=== PATIENT | male | born 1935 | race Caucasian/White ===

== ENCOUNTER 2020-09-18 00:06 | Emergency (ER) | payer MEDICARE, SELFPAY ==
[2020-09-18 00:49] VITALS: BP 138/57; PULSE 84; RESP 16; TEMP 37.6; O2SAT 98; BMI 26.6
--- NOTE | 2020-09-18 01:24 | ED_ITS ---
HPI - General Adult General Chief complaint: Fever Stated complaint: sepsis Time Seen by Provider: 09/18/20 00:29 Source: family and EMS Mode of arrival: EMS Limitations: language barrier (used interpreter for the deaf) History of Present Illness HPI narrative: Patient is an 84-year-old male a past medical history of diabetes, hypertension and high cholesterol who was brought in via EMS with a stated complaint of sepsis. However, upon patient's arrival his vital signs were stable, a rectal temp revealed 99.6F and patient had no complaints except for some gas. Edwardo, the nurse, called the patient's girlfriend at home, Vicki Perez, she states the patient has been sick for a few days, has not been eating, has had fevers, cough, fatigue and was tested 6 days ago for COVID that was negative. She states they had Thanksgiving with a group of people and 1 of those people tested positive the next day. She states both her and the patient have tested negative. She said the reason she called an ambulance is because the [facility] nurse came to the home, she was a very poor historian and the story is unclear. Related Data Allergies Allergy/AdvReac Type Severity Reaction Status Date / Time No Known Allergies Allergy Unverified 07/02/20 15:10 [No Known Allergies*] Review of Systems Review of Systems: see HPI REPLACED BY [facility] Past Medical History Medical History Diabetes High cholesterol Hypertension Social History Social History Advance Directives: No Advance Directives Information Provided: No Physical Exam Vital Signs: Vital Signs: Last Vital Signs Temp 99.6 F 09/18/20 00:49 Pulse 84 09/18/20 00:49 Resp 16 09/18/20 00:49 BP 138/57 L 09/18/20 00:49 Pulse Ox 98 09/18/20 00:49 Body Mass Index 26.6 Const: General: cooperative, healthy appearing, comfortable and no acute distress Nutritional Appearance: well nourished Orientation/consciousness: patient oriented x3 HENMT: Head: Yes normal to inspection and Yes normocephalic Eyes: General: appearance normal, both eyes and all related structures Pupils: Equal, round and reactive pupils present EOM: EOMs intact bilaterally Neck: Neck: Yes normal visual inspection, Yes full ROM, Yes no meningeal signs and Yes supple Chest: Chest palpation & inspection: normal inspection of the chest Resp: Effort & Inspection: normal respiratory effort and able to speak in complete sentences Auscultation: clear to auscultation bilaterally, no crackles, no rales, no rhonchi and no wheezes Cardio: Rate: regular rate Rhythm: regular rhythm Heart sounds: normal S1 and S2 GI: Inspection: Yes normal to inspection Palpation (GI): Soft to palpation, nontender, no guarding and not rigid Auscultation: normal bowel sounds Skin: General skin exam: no rashes or lesions noted Neuro: General: patient oriented x3 and no meningeal signs Cranial nerves: Yes Equal, round and reactive pupils present Extrem: General: Yes normal to inspection Course Course Course Narrative: Patient is an 84-year-old male with past medical history of diabetes hypertension and elevated cholesterol who was BIBA with unclear story. Upon exam with interpreter for the deaf present, patient's only complaint is some gas. His girlfriend complains of a possible COVID exposure 7 days ago but said they tested positive 5 days ago. Patient has no signs of COVID and his vital signs are stable. Will do basic labs, PO challenge and likely discharge. Will give simethicone. 09/19/2020 2am signed pt out to Dr Dupree
--- NOTE | 2020-09-18 01:30 | ECG_ITS ---
Test Reason : WEAKNESS Blood Pressure : / mmHG Vent. Rate : 078 BPM Atrial Rate : 078 BPM P-R Int : 148 ms QRS Dur : 078 ms QT Int : 374 ms P-R-T Axes : 042 -06 076 degrees QTc Int : 426 ms Sinus rhythm with Premature atrial complexes Nonspecific T wave abnormality Abnormal ECG When compared with ECG of 24-DEC-2017 03:02, Premature atrial complexes are now Present Referred By: Denise Burgos Electronically Signed By:LINDSEY JOHNSON MD
[2020-09-18 02:02] LABS: Basophils Percent Auto 0.2 % (0-2); Hematocrit 32.4 % (42-52); Hemoglobin 10.3 g/dl (14.0-18.0); Imm Gran Abs Auto 0.01 X10*3/uL (0.00-0.03); Imm Gran Pct Auto 0.2 % (0.0-0.4); Lymphocytes Absolute Auto 1.1 X10*3/uL (1.2-4.9); Lymphocytes Percent Auto 25.8 % (20-40); MANUAL DIFF FLAG NO; Mean Corpuscular HGB Conc 31.8 g/dl (31.0-36.0); Mean Corpuscular Hemoglobin 22.8 pg (27.0-33.0); Mean Corpuscular Volume 71.7 fL (80-98); Mean Platelet Volume 10.2 fL (9.4-12.4); Monocytes Absolute Auto 0.6 X10*3/uL (0.1-1.2); Neutrophils Absolute Auto 2.6 X10*3/uL (2.0-8.3); Neutrophils Percent Auto 60.8 % (45-73); Red Blood Count 4.52 X10*6/uL (4.60-5.80); White Blood Count 4.2 X10*3/uL (4.8-10.8)
[2020-09-18 02:08] LABS: INTERNATIONAL NORM RATIO 1.1 (0.9-1.1); Prothrombin Time 13.4 SEC (10.8-13.0)
[2020-09-18 02:10] LABS: Platelet Count 91 X10*3/uL (160-400)
[2020-09-18 02:11] VITALS: BP 148/70; PULSE 84; RESP 16; TEMP 37.5; O2SAT 98
[2020-09-18 02:11] LABS: Partial Thromboplastin Time 30.2 SEC (24.1-38.0)
[2020-09-18 02:29] LABS: Anion Gap 12 (12-20); Blood Urea Nitrogen 37 mg/dL (9-16); Calcium 7.3 mg/dL (8.4-10.2); Carbon Dioxide 21 mmol/L (22-29); Chloride 101 mmol/L (96-108); Creatinine Clr Calc Pharmacy 21.2; Estimated Glomerular Filt Rate 27; Glucose Random 209 mg/dL (60-115); Magnesium 1.9 mg/dL (1.6-2.6); Potassium 3.7 mmol/l (3.3-5.1); Sodium 130 mmol/L (135-145)
[2020-09-18] MEDS: Simethicone 80 MG TAB.CHEW 160 MG PO (03:05)
[2020-09-18 03:34] LABS: Glucose Urine UA >=1000 MG/DL (NEG); Leukocyte Esterase Urine TRACE (NEG); Nitrite Urine NEG (NEG); Urine Blood TRACE (NEG); Urine Ketones NEG (NEG); Urine Protein 1+ MG/DL (NEG-TRACE)
[2020-09-18 03:40] LABS: Appearance Urine CLEAR; Color Urine YELLOW
[2020-09-18 03:52] LABS: Squamous Epithelial Cell Urine TRACE /LPF
[2020-09-18 03:53] LABS: Amorphous Sediment Urine TRACE /LPF; Granular Casts Urine 0-2 /LPF; Hyaline Casts Urine 0-2 /LPF
[2020-09-18 04:00] VITALS: BP 142/57; PULSE 85; RESP 18; TEMP 37.4; O2SAT 97
[2020-09-18] MEDS: Amoxicillin/Potassium Clav 875 MG TABLET PO (04:44)
== END 2020-09-18 06:47 | disposition home or self-care (01) ==
PROVIDERS: Physician Assistant; Emergency Provider Student in an Organized Health Care Education/Training Program
DX: R50.9 Fever, unspecified (principal); E11.9 Type 2 diabetes mellitus without complications; I10 Essential (primary) hypertension; Z20.828 Contact with and (suspected) exposure to other viral communicable diseases; Z79.899 Other long term (current) drug therapy
CPT/HCPCS: 36415; 80048; 81001; 83735; 85025; 85610; 85730; 87086; 87147; 93005; 99283; 99284

== ENCOUNTER 2020-09-21 21:29 | Inpatient (IN) | payer MEDICARE, SELFPAY ==
[2020-09-21] VITALS (9 sets, daily range): BP systolic 135–163; BP diastolic 48–79; PULSE 99–175; RESP 18–28; TEMP 37.2; O2SAT 89–93; BMI 32.5
--- NOTE | 2020-09-21 | ECG_ITS ---
Test Reason : CHEST PAIN Blood Pressure : / mmHG Vent. Rate : 099 BPM Atrial Rate : 099 BPM P-R Int : 122 ms QRS Dur : 074 ms QT Int : 330 ms P-R-T Axes : -13 000 089 degrees QTc Int : 423 ms Sinus rhythm with Premature supraventricular complexes Nonspecific T wave abnormality Abnormal ECG When compared with ECG of 18-SEP-2020 01:43, No significant change was found Referred By: Mai Do Electronically Signed By:SWEETIE EL
--- NOTE | 2020-09-21 09:18 | ECG_ITS ---
Test Reason : TACHY Blood Pressure : / mmHG Vent. Rate : 104 BPM Atrial Rate : 144 BPM P-R Int : 000 ms QRS Dur : 072 ms QT Int : 340 ms P-R-T Axes : 000 001 081 degrees QTc Int : 447 ms Atrial fibrillation with rapid ventricular response Nonspecific ST and T wave abnormality Abnormal ECG When compared to the previous EKG of same day, no significant changes noted. Referred By: Mai Do Electronically Signed By:SWEETIE EL
--- NOTE | 2020-09-21 09:18 | ECG_ITS ---
Test Reason : TACHY Blood Pressure : / mmHG Vent. Rate : 162 BPM Atrial Rate : 174 BPM P-R Int : 000 ms QRS Dur : 074 ms QT Int : 262 ms P-R-T Axes : 000 000 178 degrees QTc Int : 430 ms Atrial fibrillation with rapid ventricular response Nonspecific ST and T wave abnormality Abnormal ECG When compared to the previous EKG of same day, [facility] Referred By: Mai Do Electronically Signed By:SWEETIE EL
--- NOTE | 2020-09-21 21:36 | XR_ITS ---
EXAMINATION: XR CHEST CLINICAL INFORMATION: Cough, cold exposure COMPARISON: 12/06/2017 TECHNIQUE: Frontal view of the chest was obtained. FINDINGS: The heart and pulmonary vessels appear normal. Patchy multifocal infiltrates are present in the lungs, left greater than right, worrisome for infection, possibly Covid. No definite pleural effusions are seen. The aorta is unfolded. XR/XR chest 1V IMPRESSION: Patchy infiltrates in the lungs worrisome for infection.
--- NOTE | 2020-09-21 21:37 | ED.GENADULT ---
HPI - General Adult General Chief complaint: Upper Respiratory Symptoms Stated complaint: FEVER (102.0), COVID + 3 DAYS AGO Time Seen by Provider: 09/21/20 21:34 Source: patient and EMS Mode of arrival: EMS Limitations: language barrier ( Kinyarwanda-speaking) History of Present Illness HPI narrative: patient is brought to the emergency room by EMS. According to the patient, he has been coughing for 1 week. Patient reports a fever of 102 at home. Patient is poor historian. Reports that his girls line and tested positive for COVID-19 a few days ago. Patient denies shortness of breath. According to EMS, they were called because of the cough and the fever of 102. patient was seen here 5 days ago, being treated for UTI, patient does not know which antibiotic he is taking MD complaint: fever, cough Related Data Previous Rx's Medication Instructions Recorded amoxicillin-pot clavulanate 1 tab PO Q12H 7 Days #14 tab 09/18/20 [Augmentin] Allergies Allergy/AdvReac Type Severity Reaction Status Date / Time No Known Allergies Allergy Verified 09/21/20 21:33 [No Known Allergies*] Review of Systems Review of Systems: Constitutional : No Weight loss, patient complaining of fever and chills, fatigue ENT/Mouth : No Hearing loss, No Ear Pain, No Nasal Congestion, No Sinus Pain, No Hoarseness, No sore throat, No Rhinorrhea, No Swallowing Difficulty Eyes: No Eye Pain, No Swelling, No Redness, No Foreign Body, No Discharge, No Vision Changes Cardiovascular : No Chest Pain, No SOB, No Dyspnea on Exertion, No Orthopnea, No Edema, No Palpitations Respiratory : patient complaining of Cough for 1 week, No Sputum, No Wheezing, No Smoke Exposure, No Dyspnea Gastrointestinal : No Nausea, No Vomiting, No Diarrhea, No Constipation, No abdominal Pain, No Hematochezia, No Melena Genitourinary : no irregular bleeding, No Dysuria, No Urinary Frequency, No Hematuria, No Urinary Incontinence, No Urgency, No Flank Pain, No Urinary Flow Changes, No Hesitancy Musculoskeletal : No joint pain, No Myalgias, No Joint Swelling Skin : No Skin Lesions, No rash Neuro : No Weakness, No Numbness, No Paresthesias, No Loss of Consciousness, No Dizziness, No Headache Psych : No Anxiety/Panic, No Depression, No SI/HI/AH/VH, No Social Issues, Heme/Lymph: No Bruising, No Bleeding,No Lymphadenopathy Endocrine : No Polyuria, No Polydipsia, No Temperature Intolerance PMF Past Medical History Medical History Diabetes High cholesterol Hypertension Social History Social History Advance Directives: No Physical Exam Vital Signs: Vital Signs: Last Vital Signs Temp 98.9 F 09/21/20 21:31 Pulse 133 H 09/21/20 23:15 Resp 26 H 09/21/20 23:15 BP 135/63 09/21/20 23:15 Pulse Ox 93 09/21/20 23:15 Body Mass Index 32.5 Appearance: Alert. Oriented X3. No acute distress. Eyes: Pupils equal, round and reactive to light. ENT: Pharynx normal. Neck: Normal inspection. Neck supple. No lymph nodes noted. No crepitus CVS: Normal heart rate and rhythm. Pulses normal. Normal S1 and S2 Respiratory: No respiratory distress. actively coughing. Breath sounds normal. No Wheezing. No rales Abdomen: Soft and nontender. No rigidity. No distention. good BS x4 Skin: Skin warm and dry. Normal skin color. Normal skin turgor. Extremities: No lower extremity edema. No lower extremity edema. No Lacerations. No Rash Neuro: Oriented X 3. No motor deficit. No sensory deficit. Moving all extermities. No slurred speech. Course Course Course Narrative: patient does not have history of atrial fibrillation. It was noted that patient was sitting down, then his heart rate ranged from 130-170, at this time, patient states that he was feeling short of breath and was complaining mainly of hiccups. Patient states he has been having the sensations on and off for about a week but he was not aware that his heart rate was beating fast, denied palpitations. Patient received 1 dose of IV Cardizem 20 mg, his heart rate dropped to 110 approximately, but keeps fluctuating between 110 and 140, then a 2nd dose of IV Cardizem was administered. Patient's blood pressure remains stable in the 140s, patient asymptomatic, heart rate now ranging between 90 and 115. Patient will be started on a Cardizem drip given patient's exposure to a COVID-19 patient, symptoms of the patient, chest x-ray, patient likely has COVID-19. COVID-19 test results pending I discussed the patient with our hospitalist, patient being admitted Medical Decision Making Lab Data Result diagrams: 09/21/20 21:49 09/21/20 21:49 Labs: Lab Results 09/21/20 09/21/20 09/21/20 Range/Units 21:49 21:49 21:49 WBC 4.4 L (4.8-10.8) X10*3/uL RBC 4.97 (4.60-5.80) X10*6/uL Hgb 11.4 L (14.0-18.0) g/dl Hct 35.1 L (42-52) % MCV 70.6 L (80-98) fL MCH 22.9 L (27.0-33.0) pg MCHC 32.5 (31.0-36.0) g/dl RDW 14.0 (11.0-16.0) % Plt Count 111 L (160-400) X10*3/uL MPV 11.8 (9.4-12.4) fL Immature Gran % (Auto) 0.5 H (0.0-0.4) % Neut % (Auto) 57.9 (45-73) % Lymph % (Auto) 27.4 (20-40) % [place] % (Auto) 13.8 H (2-11) % Eos % (Auto) 0.2 (0-4) % Baso % (Auto) 0.2 (0-2) % Lymph # (Auto) 1.2 (1.2-4.9) X10*3/uL [place] # (Auto) 0.6 (0.1-1.2) X10*3/uL Eos # (Auto) 0.0 (0.0-0.4) X10*3/uL Baso # (Auto) 0.0 (0.0-0.2) X10*3/uL Abs Immat Gran (auto) 0.02 (0.00-0.03) X10*3/uL Absolute Neuts (auto) 2.6 (2.0-8.3) X10*3/uL Absolute Nucleated RBC 0.000 (0.0-0.012) X10*3/uL Nucleated RBC % (auto) 0.0 (0.0-0.2) /100WBC Sodium 134 L (135-145) mmol/L Potassium 3.9 (3.3-5.1) mmol/l Chloride 101 (96-108) mmol/L Carbon Dioxide 22 (22-29) mmol/L Anion Gap 15 (12-20) BUN 36 H (9-16) mg/dL Creatinine 1.82 H (0.5-1.4) mg/dL Estim Creat Clear Calc 30.4 Estimated GFR 36 Random Glucose 82 D (60-115) mg/dL Lactic Acid 1.4 (0.5-2.0) mmol/L Calcium 7.9 L D (8.4-10.2) mg/dL ECG Data Attestation: I personally reviewed and interpreted this ECG as follows: ( sinus rhythm, heart rate 99, nonspecific T-wave abnormalities, QTC 423. EKG 2: fibrillation with RVR, heart rate 162. EKG 3: atrial fibrillation with RVR, heart rate 104) Critical Care Time Critical Care Time Critical Care Time: Yes Total Critical Care Time: 60 Attestation: AFib with RVR Discharge Plan Discharge Clinical Impression: Upper respiratory infection, Atrial fibrillation with RVR Patient Disposition: Admitted As Inpatient Prescriptions: No Action amoxicillin-pot clavulanate [Augmentin] 875-125 mg tablet 1 tab PO Q12H 7 Days Qty: 14 RF: 0
--- NOTE | 2020-09-21 21:57 | PC.NURSE ---
Pt spo2 92-93 on room air, placed on 2l nasal cannula, now 97-98
[2020-09-21 21:58] LABS: SCAN SMEAR FLAG 1
[2020-09-21 21:59] LABS: MANUAL DIFF FLAG NO
[2020-09-21 22:00] LABS: Basophils Percent Auto 0.2 % (0-2); Eosinophils Percent Auto 0.2 % (0-4); Hematocrit 35.1 % (42-52); Hemoglobin 11.4 g/dl (14.0-18.0); Imm Gran Abs Auto 0.02 X10*3/uL (0.00-0.03); Imm Gran Pct Auto 0.5 % (0.0-0.4); Lymphocytes Absolute Auto 1.2 X10*3/uL (1.2-4.9); Lymphocytes Percent Auto 27.4 % (20-40); Mean Corpuscular HGB Conc 32.5 g/dl (31.0-36.0); Mean Corpuscular Hemoglobin 22.9 pg (27.0-33.0); Mean Corpuscular Volume 70.6 fL (80-98); Mean Platelet Volume 11.8 fL (9.4-12.4); Monocytes Absolute Auto 0.6 X10*3/uL (0.1-1.2); Monocytes Percent Auto 13.8 % (2-11); Neutrophils Absolute Auto 2.6 X10*3/uL (2.0-8.3); Neutrophils Percent Auto 57.9 % (45-73); PLT ABN DIST 1; Platelet Count 111 X10*3/uL (160-400); Red Blood Count 4.97 X10*6/uL (4.60-5.80); White Blood Count 4.4 X10*3/uL (4.8-10.8)
[2020-09-21 22:29] LABS: Lactic Acid 1.4 mmol/L (0.5-2.0)
[2020-09-21] MEDS: 0.9 % Sodium Chloride 1,000 ML 999 ML IVCONT (22:40)
[2020-09-21] MEDS: dilTIAZem HCL 50 MG/10 ML VIAL 20 MG IVPUSH ×2 (22:41→23:14)
[2020-09-21 22:42] LABS: Anion Gap 15 (12-20); Blood Urea Nitrogen 36 mg/dL (9-16); Calcium 7.9 mg/dL (8.4-10.2); Carbon Dioxide 22 mmol/L (22-29); Chloride 101 mmol/L (96-108); Creatinine Clr Calc Pharmacy 30.4; Estimated Glomerular Filt Rate 36; Glucose Random 82 mg/dL (60-115); Potassium 3.9 mmol/l (3.3-5.1); Sodium 134 mmol/L (135-145)
--- NOTE | 2020-09-21 22:51 | PC.NURSE ---
Late etry. Aprox 2595 patient placed on air sampling and monitoring with tachy rythm in 170's. EKG showed irregular rythm. Cardizem administered and HR improved. Remains in a fib. Pt was alert, oriented, skin pwd. unlabored resp throughout. Reporting mild chestpain.
[2020-09-21] MEDS: dilTIAZem HCL 125 MG in 0.9 % Sodium Chloride 100 ML 10 MG IVCONT (23:45)
[2020-09-21 23:51] LABS: COVID-19 Test Positive (Negative)
[2020-09-22] VITALS (14 sets, daily range): BP systolic 119–164; BP diastolic 37–103; PULSE 75–123; RESP 16–30; TEMP 36.3–36.8; O2SAT 90–96; BMI 32.5
--- NOTE | 2020-09-22 | XR_ITS ---
EXAMINATION: XR ABDOMEN KUB CLINICAL INDICATION: Abdominal pain COMPARISON: None TECHNIQUE: AP view of the abdomen. FINDINGS: There is gaseous distention of the tortuous colon with gas seen distally to the rectum. Gas distended small bowel loops are present as well. No abnormal abdominal calcifications. Degenerative changes of the lumbar spine and hips. XR/XR KUB IMPRESSION: There is gaseous distention of the tortuous colon. There are gas distended small bowel loops as well. An ileus could give this appearance.
[2020-09-22] MEDS: Metoprolol Tartrate 5 MG/5 ML VIAL 2.5 MG IVPUSH (01:16)
--- NOTE | 2020-09-22 05:14 | PM.IMHP ---
History of Present Illness Date of Service: 09/22/20 Chief Complaint: cough this an 84-year-old male with past medical history diabetes who presents to the hospital with complaints of cough. patient is Botswanan-speaking only and history is obtained with the help of an motor vehicle parts interpreter. 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 He reports that he has been having cough for the past 1 week. According to the ED record patient presented to the hospital on stating that multiple members of his family had tested positive for COVID-19 after Thanksgiving. His family were concerned that he may also be suffering from that as he had cough and was not feeling generally well. He returns today stating that his cough has worsened, he has no shortness of breath, nonproductive cough. He has low appetite with very minimal oral intake. No diarrhea or constipation. No lower extremity edema. No orthopnea PND. No headache change in vision. On arrival to the ED patient found to have an O2 saturation of 89% on room air. He was also found to have a heart rate of 175, and in AFib. patient currently on 3 L of oxygen satting between 90-92%. Labs are significant for WBC count of 4.4, sodium of 134, BUN of 36, creatinine of 1.82 (baseline). COVID-19 positive. Chest x-ray showing bilateral infiltrate. Past medical history is difficult to obtain from patient Past medical history: Diabetes, hypertension, hyperlipidemia past surgical history: Denies family history: Denies social history: Comes from home, lives with his girlfriend, reports that he ambulates independently, denies any tobacco alcohol and illicit drugs Review of Systems Review of Systems: Yes all other systems are reviewed and are negative [facility] Medical History Diabetes High cholesterol Hypertension Social History Alcohol intake: never Smoking Status: Never smoker Use of substances other than those prescribed or required for medical reasons: No Advance Directives: No Meds Allergies Allergy/AdvReac Type Severity Reaction Status Date / Time No Known Allergies Allergy Verified 09/21/20 21:33 [No Known Allergies*] Home Medications Medication Instructions Recorded Confirmed Type amoxicillin-pot clavulanate See Protocol PO Q12H 09/21/20 History [Augmentin] aspirin 1 tab PO DAILY 09/21/20 09/21/20 History atorvastatin 1 tab PO DAILY 09/21/20 09/21/20 History docusate sodium [DOK] 1 cap PO DAILY 09/21/20 09/21/20 History insulin aspart (niacinamide) See Protocol SUBCUT DAILY 09/21/20 09/21/20 History [Fiasp FlexTouch U-100 Insulin] lancets [TRUEplus Lancets] 09/21/20 09/21/20 History metoclopramide HCl 10 mg PO DAILY 09/21/20 09/21/20 History pen needle, diabetic [Pentips] 09/21/20 09/21/20 History terazosin 1 cap PO DAILY 09/21/20 09/21/20 History Physical Exam Vital Signs and Narrative: Vital Signs: Last Vital Signs Temp 98.9 F 09/21/20 21:31 Pulse 91 09/22/20 03:50 Resp 18 09/22/20 03:50 BP 119/47 L 09/22/20 01:30 Pulse Ox 93 09/22/20 03:50 Body Mass Index 32.5 Const: Other: appears dehydrated General: cooperative and ill appearing Eyes: General: appearance normal, both eyes and all related structures Pupils: Equal, round and reactive pupils present Resp: Effort & Inspection: normal respiratory effort Cardio: Rate: regular rate Rhythm: regular rhythm GI: Palpation (GI): Soft to palpation Auscultation: normal bowel sounds Skin: General skin exam: no rashes or lesions noted Neuro: Cranial nerves: Yes Equal, round and reactive pupils present Cognition (Neuro): normal cognition Extrem: General: Yes normal to inspection and Yes no pedal edema Results Labs CBC and Chem 7: 09/21/20 21:49 09/21/20 21:49 Labs: Laboratory Results - last 24 hr 09/21/20 09/21/20 09/21/20 21:49 21:49 21:49 MCV 70.6 L MCH 22.9 L MCHC 32.5 RDW 14.0 Plt Count 111 L MPV 11.8 Immature Gran % (Auto) 0.5 H Neut % (Auto) 57.9 Lymph % (Auto) 27.4 [place] % (Auto) 13.8 H Eos % (Auto) 0.2 Baso % (Auto) 0.2 Lymph # (Auto) 1.2 [place] # (Auto) 0.6 Eos # (Auto) 0.0 Baso # (Auto) 0.0 Abs Immat Gran (auto) 0.02 Absolute Neuts (auto) 2.6 Absolute Nucleated RBC 0.000 Nucleated RBC % (auto) 0.0 Anion Gap 15 Estim Creat Clear Calc 30.4 Estimated GFR 36 Random Glucose 82 D Lactic Acid 1.4 Calcium 7.9 L D COVID-19 ([facility]) COVID-19 Clin Com 09/21/20 23:34 MCV MCH MCHC RDW Plt Count MPV Immature Gran % (Auto) Neut % (Auto) Lymph % (Auto) [place] % (Auto) Eos % (Auto) Baso % (Auto) Lymph # (Auto) [place] # (Auto) Eos # (Auto) Baso # (Auto) Abs Immat Gran (auto) Absolute Neuts (auto) Absolute Nucleated RBC Nucleated RBC % (auto) Anion Gap Estim Creat Clear Calc Estimated GFR Random Glucose Lactic Acid Calcium COVID-19 ([facility]) Positive A COVID-19 Clin Com See Note Imaging Radiologist's Impressions: Impressions Chest X-Ray 09/21/20 21:36 IMPRESSION: Patchy infiltrates in the lungs worrisome for infection. Assessment and Plan (1) Hypoxia: Status: Acute (2) Pneumonia due to COVID-19 virus: Status: Acute (3) Upper respiratory infection: Qualifiers: URI type: unspecified URI Qualified Code(s): J06.9 - Acute upper respiratory infection, unspecified Status: Acute (4) Atrial fibrillation with RVR: Status: Acute This is an 84-year-old male with past medical history as above who presents to the hospital with failure. Found to be in AFib with RVR # Sepsis - secondary to COVID-19 pneumonia - patient tachycardic, has leukopenia, as well as tachypneic - chest x-ray typical of COVID-19 presentation, COVID-19 positive Plan: - dexamethasone 4 mg daily - blood cultures collected in the ED will follow sensitivity and specificity - IV fluids # COVID-19 pneumonia - chest x-ray as above, COVID-19 results positive, hypoxic - monitor respiratory status, O2 as required, dexamethasone daily # acute hypoxic respiratory failure - secondary to COVID-19 pneumonia as above - O2 as required, monitor respiratory status # AFib with RVR - pulse of 175 on arrival, it appears to be new onset AFib as patient has no record or history of AFib - EKG shows AFib with RVR, no evidence of ACS Plan: - Will obtain a stat high sensitivity troponin, echocardiogram, consult Cardiology, will start patient on Lovenox for DVT prophylaxis at this time # diabetes - low-dose sliding scale insulin - diabetic diet # hyperlipidemia - continue statin
[2020-09-22] MEDS: 0.9 % Sodium Chloride Flush 3 ML SYRINGE IVFLUSH ×2 (08:54→16:33)
[2020-09-22] MEDS: ondansetron HCL 4 MG/2 ML VIAL IVPUSH ×2 (08:54→18:52)
[2020-09-22] MEDS: Enoxaparin Sodium 100 MG/ML SYRINGE 85 MG SUBCUT ×2 (08:54→20:28)
[2020-09-22] MEDS: dexAMETHasone sod phosphate 4 MG/ML VIAL IVPUSH (08:54)
[2020-09-22] MEDS: Docusate Sodium 100 MG CAPSULE PO (08:55)
[2020-09-22] MEDS: Acetaminophen 325 MG TABLET 650 MG PO (08:55)
[2020-09-22] MEDS: Aspirin Enteric Coated 81 MG TABLET.DR PO (08:55)
[2020-09-22] MEDS: Atorvastatin Calcium 20 MG TABLET PO (08:55)
[2020-09-22 09:09] LABS: Hematocrit 34.2 % (42-52); Hemoglobin 11.1 g/dl (14.0-18.0); Mean Corpuscular HGB Conc 32.5 g/dl (31.0-36.0); Mean Corpuscular Hemoglobin 22.7 pg (27.0-33.0); Mean Corpuscular Volume 70.1 fL (80-98); Platelet Count 112 X10*3/uL (160-400); Red Blood Count 4.88 X10*6/uL (4.60-5.80); White Blood Count 5.1 X10*3/uL (4.8-10.8)
[2020-09-22 09:11] LABS: PLT ABN DIST 1
[2020-09-22 09:14] LABS: Glucose, Whole Blood 227 mg/dL (60-115)
[2020-09-22 09:32] LABS: INTERNATIONAL NORM RATIO 1.1 (0.9-1.1); Prothrombin Time 13.6 SEC (10.8-13.0)
[2020-09-22 09:33] LABS: Troponin-I High Sensitivity 58.2 ng/L (<3.5-35.0)
[2020-09-22 09:35] LABS: Partial Thromboplastin Time 30.5 SEC (24.1-38.0)
[2020-09-22] MEDS: dilTIAZem HCL CD 180 MG CAP.ER.24H PO (11:41)
[2020-09-22 11:48] LABS: Glucose, Whole Blood 260 mg/dL (60-115)
[2020-09-22 11:59] LABS: Glucose Urine UA 500 MG/DL (NEG); Leukocyte Esterase Urine NEG (NEG); Nitrite Urine NEG (NEG); PH 5.5 (5.0-8.0); Specific Gravity - Urine >= 1.030 (1.005-1.025); Urine Blood 2+ (NEG); Urine Ketones 5 MG/DL (NEG); Urine Protein 2+ MG/DL (NEG-TRACE)
[2020-09-22 12:04] LABS: Appearance Urine HAZY; Color Urine YELLOW
[2020-09-22 12:16] LABS: Squamous Epithelial Cell Urine 2+ /LPF
[2020-09-22] MEDS: Insulin Lispro 100 UNIT/ML 3 ML VIAL SUBCUT ×2 (12:31→16:33)
[2020-09-22] MEDS: dexAMETHasone 2 MG TABLET PO (14:08)
[2020-09-22 16:37] LABS: Glucose, Whole Blood 311 mg/dL (60-115)
--- NOTE | 2020-09-22 18:11 | PC.NURSE ---
Addendum entered by Liliya Flanagan RN 09/22/20 21:20: Around 1800 pt started to complain of his increased abd pain and decreased appetite. Gave pt PRN zofran believing it could help, pt said was not effective. Pt abd does look distented at this time, soft, but tender to touch as well. Pt is belching and passing gas at this time. Pt is poor historian so doesnt know time of last BM (did have a colace this am) . Notified Md - one time 2mg morphine and miralax ordered. KUB ordered. Will monitor for effectiveness and KUB results. Original Note: Pt to [facility] this afternoon. Uz[place] speaking only Pt alert to self only - unsure about time/situation and sometimes says hes in the hospital but unsure of which one/where. Pt sleeping most of afternoon. SR/SA w/PACs on tele at this time. Lungs dim. Was on 5l o2 when up from ICU- was able to titrate to 3l sat mid 90s on nasal cannula. Telesitter and high fall risk measures remain in place - pt doesnt rememeber to use call rush but RN and aide will continue to encourage use. No other significant events at this time.
[2020-09-22] MEDS: Morphine Sulfate 2 MG/ML CARTRIDGE IVPUSH (20:27)
[2020-09-22] MEDS: polyethylene glycoL 3350 17 GM POWD.PACK PO (20:28)
[2020-09-22 21:31] LABS: Glucose, Whole Blood 268 mg/dL (60-115)
[2020-09-23] VITALS (8 sets, daily range): BP systolic 140–182; BP diastolic 61–78; PULSE 69–106; RESP 18–25; TEMP 36.4–37.2; O2SAT 90–94; BMI 29.5
--- NOTE | 2020-09-23 | XR_ITS ---
EXAMINATION: XR CHEST CLINICAL INFORMATION: Nasogastric tube placement COMPARISON: Previous chest x-ray 09/21/2020 TECHNIQUE: Frontal view of the chest was obtained. FINDINGS: There is a nasogastric tube that projects over the visualized head and neck. The tip is not seen. The cardiac and mediastinal contours are stable. There is a left-sided airspace disease suggestive of pneumonia. There may be a small infiltrate at the right lung base as well. This does not appear appreciably changed from previous exam. There is no pleural effusion or pneumothorax. There are degenerative changes of the spine. XR/XR chest 1V IMPRESSION: Nasogastric tube projects over the head and neck. The tip is not seen. No change in bilateral airspace disease, left greater than right, probably representing pneumonia. Findings will be communicated by the [place] work flow health science writer Anna Garza.
[2020-09-23] MEDS: 0.9 % Sodium Chloride Flush 3 ML SYRINGE IVFLUSH ×4 (00:24→21:42)
[2020-09-23] MEDS: Acetaminophen 325 MG TABLET 650 MG PO (02:19)
[2020-09-23] MEDS: Morphine Sulfate 2 MG/ML CARTRIDGE IVPUSH ×2 (04:44→12:48)
--- NOTE | 2020-09-23 06:00 | PC.NURSE ---
Addendum entered by Lanie Hendricks RN 09/23/20 07:43: Patient pulled out NG tube at 0630. Dr. Steven notified, this RN attempted to get another NG tube in without success. Day RN is aware and will make an attempt at placing NG tube. Original Note: Patient c/o generalized abd pain during the night. Pt abdomen is distended, positive bowel sounds - faint in bilateral bases. Pt received miralax last evening and moved bowels. However, pt continued to c/o of 7/10 abd pain and abdomen more firm than before. Dr. Steven notifed and ordered pt to be NPO, NG tube to be placed and surgery consult. This RN placed NG tube in right nare with 14F, pt tolerated well.
[2020-09-23 07:27] LABS: INTERNATIONAL NORM RATIO 1.2 (0.9-1.1); Prothrombin Time 14.1 SEC (10.8-13.0)
[2020-09-23 07:28] LABS: MANUAL DIFF FLAG SCAN; Mean Corpuscular HGB Conc 32.5 g/dl (31.0-36.0); SCAN SMEAR FLAG 1
[2020-09-23 07:30] LABS: Hematocrit 33.8 % (42-52); Imm Gran Abs Auto 0.05 X10*3/uL (0.00-0.03); Imm Gran Pct Auto 0.5 % (0.0-0.4); Lymphocytes Absolute Auto 0.6 X10*3/uL (1.2-4.9); Lymphocytes Percent Auto 6.4 % (20-40); Mean Corpuscular Hemoglobin 22.9 pg (27.0-33.0); Mean Corpuscular Volume 70.3 fL (80-98); Monocytes Absolute Auto 0.6 X10*3/uL (0.1-1.2); Monocytes Percent Auto 6.2 % (2-11); Neutrophils Absolute Auto 8.3 X10*3/uL (2.0-8.3); Neutrophils Percent Auto 86.9 % (45-73); Platelet Count 147 X10*3/uL (160-400); Red Blood Count 4.81 X10*6/uL (4.60-5.80); Red Cell Distribution Width 14.1 % (11.0-16.0); White Blood Count 9.5 X10*3/uL (4.8-10.8)
[2020-09-23 08:04] LABS: PLT ABN DIST 1
[2020-09-23 08:08] LABS: Anion Gap 18 (12-20); Blood Urea Nitrogen 43 mg/dL (9-16); Calcium 7.4 mg/dL (8.4-10.2); Carbon Dioxide 17 mmol/L (22-29); Chloride 101 mmol/L (96-108); Estimated Glomerular Filt Rate 34; Glucose Fasting 330 mg/dL (60-99); Potassium 4.3 mmol/l (3.3-5.1); Sodium 132 mmol/L (135-145)
[2020-09-23 08:40] LABS: Glucose, Whole Blood 353 mg/dL (60-115)
[2020-09-23 08:43] LABS: SLIDE REVIEW VERIFIED
--- NOTE | 2020-09-23 08:44 | MHC.CM.PN ---
pt lives c his s.o. in their apt. he reports that he is independent in his care. free of AD c ambulation and no svcs at home. his s.o. or other family can help him c his needs at dc , this will include a ride home at dc. dc plan at this time is home no svcs , however it is early in pt's hospitalization and depending on the course and condition of patient at dc this may change. cm to cont. to follow.
[2020-09-23] MEDS: Atorvastatin Calcium 20 MG TABLET PO (10:50)
[2020-09-23] MEDS: Aspirin Enteric Coated 81 MG TABLET.DR PO (10:50)
[2020-09-23] MEDS: dexAMETHasone sod phosphate 4 MG/ML VIAL 6 MG IVPUSH (10:53)
[2020-09-23] MEDS: Enoxaparin Sodium 100 MG/ML SYRINGE 85 MG SUBCUT ×2 (10:54→21:31)
[2020-09-23] MEDS: dilTIAZem HCL CD 180 MG CAP.ER.24H PO (10:56)
[2020-09-23] MEDS: polyethylene glycoL 3350 17 GM POWD.PACK PO (10:57)
[2020-09-23 11:35] LABS: Glucose, Whole Blood 369 mg/dL (60-115)
--- NOTE | 2020-09-23 12:01 | P.PNIM_ITS ---
Subjective Subjective Date of Service: 09/23/20 Interval History: mild abd pain Cardiovascular Cardiovascular: Reports no additional cardiovascular complaints Musculoskeletal Musculoskeletal: Reports no additional musculoskeletal complaints Physical Exam Vital Signs: Vital Signs: Last Vital Signs Temp 98.9 F 09/23/20 08:00 Pulse 99 09/23/20 10:56 Resp 20 09/23/20 03:16 BP 182/78 H 09/23/20 10:56 Pulse Ox 91 L 09/23/20 08:00 Body Mass Index 29.5 General: AO X 3, no acute distress Resp: CTA bilateral CVS: S1,S2,RRR GI: soft, some distension Neuro: motor grossly intact Psych: appropriate affect Objective Data Current Medications Generic Name Dose Route Start Last Admin Trade Name Freq PRN Reason Stop Dose Admin Acetaminophen 650 mg 09/22/20 08:25 09/23/20 02:19 Acetaminophen 325 Mg Tablet PO 650 mg Q6H PRN Administration Pain, Mild (Pain Scale 1-3) Aspirin 81 mg 09/22/20 09:00 09/23/20 10:50 Aspirin Enteric Coated 81 Mg Tablet.Dr PO 81 mg DAILY [facility] Administration Atorvastatin Calcium 20 mg 09/22/20 09:00 09/23/20 10:50 Atorvastatin Calcium 20 Mg Tablet PO 20 mg DAILY [facility] Administration Dexamethasone Sodium Phosphate 6 mg 09/22/20 09:00 09/23/20 10:53 Dexamethasone Sod Phosphate 4 Mg/Ml Vial IVPUSH 6 mg DAILY [facility] Administration Diltiazem HCl 180 mg 09/23/20 09:00 09/23/20 10:56 Diltiazem Hcl Cd 180 Mg Cap.Er.24h PO 180 mg DAILY [facility] Administration Protocol Docusate Sodium 100 mg 09/22/20 08:25 09/22/20 08:55 Docusate Sodium 100 Mg Capsule PO 100 mg DAILY PRN Administration Constipation Enoxaparin Sodium 85 mg 09/22/20 08:25 09/23/20 10:54 Enoxaparin Sodium 100 Mg/Ml Syringe 1 mg/kg (85 mg) 85 mg SUBCUT Administration Q12H [facility] Insulin Human Lispro 0 unit 09/22/20 08:25 09/23/20 10:49 Insulin Lispro 100 Unit/Ml 3 Ml Vial SUBCUT Not Given QIDACHS [facility] Protocol Morphine Sulfate 2 mg 09/23/20 04:08 09/23/20 04:44 Morphine Sulfate 2 Mg/Ml Cartridge IVPUSH 2 mg Q4H PRN Administration Pain, Severe (Pain Scale 7-10) Ondansetron HCl 4 mg 09/22/20 08:25 09/22/20 18:52 Ondansetron Hcl 4 Mg/2 Ml Vial IVPUSH 4 mg Q8H PRN Administration Nausea and Vomiting Pharmacy Consult 1 each 09/21/20 23:24 Consult Rx Perform Med Rec MISCELLANE ONCE PRN Consult order Polyethylene Glycol 17 gm 09/22/20 20:10 09/23/20 10:57 Polyethylene Glycol 3350 17 Gm Powd.Pack PO 17 gm DAILY [facility] Administration Sodium Chloride 3 ml 09/22/20 08:25 09/23/20 10:55 0.9 % Sodium Chloride Flush 3 Ml Syringe IVFLUSH 3 ml QSHIFT [facility] Administration Labs CBC & Chem 7: 09/23/20 06:06 09/23/20 06:06 Microbiology Microbiology Results: Microbiology 09/21/20 22:00 Blood - Venous Blood Culture - Preliminary No growth after 24 hours. 09/21/20 21:49 Blood - Venous Blood Culture - Preliminary No growth after 24 hours. Assessment and Plan (1) Hypoxia: Status: Deleted (2) Pneumonia due to COVID-19 virus: Status: Acute (3) Upper respiratory infection: Status: Deleted (4) Atrial fibrillation with RVR: Status: Acute (5) Acute respiratory failure with hypoxia: Status: Acute (6) CKD (chronic kidney disease), stage III: Status: Acute (7) Diabetes: Status: Acute (8) Hypertension: Status: Acute Assessment and Plan: 84-year-old male presented to the hospital with sob, afib rvr, abd distension sepsis poa due to viral sepsis from covid pneumonia complicated by acute hypoxic respiratory failure and afib with rvr continue decadron wean o2 as tolerated converted to sinus, continue therapeutic lovenox and cardizem ileus s/p NGT, minimal symptoms, follow up surgery diabetes insulin CKD III stable hyperlipidemia statin
[2020-09-23] MEDS: Insulin Lispro 100 UNIT/ML 3 ML VIAL SUBCUT ×3 (12:45→21:31)
[2020-09-23 16:21] LABS: Glucose, Whole Blood 378 mg/dL (60-115)
[2020-09-23] MEDS: ondansetron HCL 4 MG/2 ML VIAL IVPUSH (18:35)
[2020-09-23 20:15] LABS: Glucose, Whole Blood 391 mg/dL (60-115)
[2020-09-24] VITALS (8 sets, daily range): BP systolic 142–168; BP diastolic 55–74; PULSE 80–95; RESP 18–85; TEMP 36–36.8; O2SAT 89–92; BMI 29.5
[2020-09-24 06:42] LABS: Basophils Percent Auto 0.1 % (0-2); Hematocrit 31.2 % (42-52); Hemoglobin 10.4 g/dl (14.0-18.0); Imm Gran Abs Auto 0.15 X10*3/uL (0.00-0.03); Imm Gran Pct Auto 1.2 % (0.0-0.4); Lymphocytes Absolute Auto 0.6 X10*3/uL (1.2-4.9); Lymphocytes Percent Auto 5.1 % (20-40); MANUAL DIFF FLAG SCAN; Mean Corpuscular HGB Conc 33.3 g/dl (31.0-36.0); Mean Corpuscular Hemoglobin 23.1 pg (27.0-33.0); Mean Corpuscular Volume 69.3 fL (80-98); Monocytes Absolute Auto 0.6 X10*3/uL (0.1-1.2); Monocytes Percent Auto 5.2 % (2-11); Neutrophils Absolute Auto 10.7 X10*3/uL (2.0-8.3); Neutrophils Percent Auto 88.4 % (45-73); Platelet Count 200 X10*3/uL (160-400); Red Cell Distribution Width 14.2 % (11.0-16.0); SCAN SMEAR FLAG 1; White Blood Count 12.1 X10*3/uL (4.8-10.8)
[2020-09-24 07:24] LABS: Glucose, Whole Blood 305 mg/dL (60-115)
[2020-09-24 07:26] LABS: Anion Gap 18 (12-20); Blood Urea Nitrogen 59 mg/dL (9-16); Calcium 7.8 mg/dL (8.4-10.2); Carbon Dioxide 18 mmol/L (22-29); Chloride 102 mmol/L (96-108); Estimated Glomerular Filt Rate 30; Glucose Fasting 307 mg/dL (60-99); Potassium 4.1 mmol/l (3.3-5.1); Sodium 134 mmol/L (135-145)
--- NOTE | 2020-09-24 07:34 | P.CONGS_ITS ---
History of Present Illness Consult details Consult date: 09/24/20 Reason for consult: abdominal pain Narrative: 84 year old Macedonian speaking male with dementia, presenting with history of COVID-19 exposure over , developing respiratory symptoms and admitted to the [facility] with precautions for a positive COVID. Patient found to have increased shortness of breath and decreased O2 sats in the ED. Abdominal xray revealed dilated loops of bowel and dilated colon, possibly due to ileus. Since his admission, he has passed stool. He is currently on a clear liquid diet. Review of Systems Review of Systems: Yes Unobtainable due to mental condition [facility] Past Medical History Medical History (Updated 09/24/20 @ 07:44 by Porfirio Johnson MD) Diabetes High cholesterol Hypertension Social History Social History Household Members: Spouse Housing: House Do you presently have visiting nurse or other home services: No Alcohol intake: never Smoking Status: Never smoker Use of substances other than those prescribed or required for medical reasons: No Currently Displaying Signs/Symptoms of Drug Intoxication Withdrawal: No Have you been hit, kicked, punched, or otherwise hurt by someone within the past year? If so, by whom?: No Do you feel safe in your current relationship?: No Is there a partner from a previous relationship who is making you feel unsafe now?: No Are you made to feel afraid or neglected: No Advance Directives: No Do you have thoughts of harming others: None Do you have a plan to hurt others: No Plan Recently lost weight without trying: Unsure service: No Current occupational status: retired [employer] Allergies Allergy/AdvReac Type Severity Reaction Status Date / Time No Known Allergies Allergy Verified 09/21/20 21:33 [No Known Allergies*] Home Medications Medication Instructions Recorded Confirmed Type amoxicillin-pot clavulanate 1 tab PO Q12H 09/21/20 09/22/20 History [Augmentin] aspirin 1 tab PO DAILY 09/21/20 09/21/20 History atorvastatin 1 tab PO DAILY 09/21/20 09/21/20 History docusate sodium [DOK] 1 cap PO DAILY 09/21/20 09/21/20 History insulin aspart (niacinamide) See Protocol SUBCUT DAILY 09/21/20 09/21/20 History [Fiasp FlexTouch U-100 Insulin] lancets [TRUEplus Lancets] 09/21/20 09/21/20 History metoclopramide HCl 10 mg PO DAILY 09/21/20 09/21/20 History pen needle, diabetic [Pentips] 09/21/20 09/21/20 History terazosin 1 cap PO DAILY 09/21/20 09/21/20 History Physical Exam Vital Signs: Vital Signs: Last Vital Signs Temp 98 F 09/24/20 06:54 Pulse 92 09/24/20 06:54 Resp 20 09/24/20 06:54 BP 149/74 H 09/24/20 06:54 Pulse Ox 89 L 09/24/20 06:54 Body Mass Index 29.5 Const: Other: Awake, in no acute distress, breathing comfortably. Eyes: Other: EOMI, normal sclera Resp: Other: Breathing comfortably, no respiratory distress, no cough GI: Other: Softly distended, non tympanitic, nontender to palpation, no rebound, no rigidity, no palpable mass Skin: Other: Warm and dry, no rash Extrem: Other: No peripheral edema Results Labs Result diagrams: 09/23/20 06:06 09/24/20 05:52 Labs: Abnormal lab results 09/23/20 09/23/20 09/23/20 Range/Units 06:06 06:06 08:34 Hgb 11.0 L (14.0-18.0) g/dl Hct 33.8 L (42-52) % MCV 70.3 L (80-98) fL MCH 22.9 L (27.0-33.0) pg Plt Count 147 L D (160-400) X10*3/uL Immature Gran % (Auto) 0.5 H (0.0-0.4) % Neut % (Auto) 86.9 H (45-73) % Lymph % (Auto) 6.4 L (20-40) % Lymph # (Auto) 0.6 L (1.2-4.9) X10*3/uL Abs Immat Gran (auto) 0.05 H (0.00-0.03) X10*3/uL Sodium 132 L (135-145) mmol/L Carbon Dioxide 17 L (22-29) mmol/L BUN 43 H (9-16) mg/dL Creatinine 1.88 H (0.5-1.4) mg/dL POC Glucose 353 H* (60-115) mg/dL Fasting Glucose 330 H (60-99) mg/dL Calcium 7.4 L D (8.4-10.2) mg/dL 09/23/20 09/23/20 09/23/20 Range/Units 11:30 16:16 20:10 Hgb (14.0-18.0) g/dl Hct (42-52) % MCV (80-98) fL MCH (27.0-33.0) pg Plt Count (160-400) X10*3/uL Immature Gran % (Auto) (0.0-0.4) % Neut % (Auto) (45-73) % Lymph % (Auto) (20-40) % Lymph # (Auto) (1.2-4.9) X10*3/uL Abs Immat Gran (auto) (0.00-0.03) X10*3/uL Sodium (135-145) mmol/L Carbon Dioxide (22-29) mmol/L BUN (9-16) mg/dL Creatinine (0.5-1.4) mg/dL POC Glucose 369 H* 378 H* 391 H* (60-115) mg/dL Fasting Glucose (60-99) mg/dL Calcium (8.4-10.2) mg/dL 09/24/20 09/24/20 Range/Units 05:52 07:19 Hgb (14.0-18.0) g/dl Hct (42-52) % MCV (80-98) fL MCH (27.0-33.0) pg Plt Count (160-400) X10*3/uL Immature Gran % (Auto) (0.0-0.4) % Neut % (Auto) (45-73) % Lymph % (Auto) (20-40) % Lymph # (Auto) (1.2-4.9) X10*3/uL Abs Immat Gran (auto) (0.00-0.03) X10*3/uL Sodium 134 L (135-145) mmol/L Carbon Dioxide 18 L (22-29) mmol/L BUN 59 H (9-16) mg/dL Creatinine 2.11 H (0.5-1.4) mg/dL POC Glucose 305 H (60-115) mg/dL Fasting Glucose 307 H (60-99) mg/dL Calcium 7.8 L (8.4-10.2) mg/dL Short CBC 09/23/20 Range/Units 06:06 WBC 9.5 (4.8-10.8) X10*3/uL Hgb 11.0 L (14.0-18.0) g/dl Hct 33.8 L (42-52) % Plt Count 147 L D (160-400) X10*3/uL BMP 09/23/20 09/24/20 06:06 05:52 Sodium 132 L 134 L Potassium 4.3 4.1 Chloride 101 102 Carbon Dioxide 17 L 18 L BUN 43 H 59 H Creatinine 1.88 H 2.11 H Calcium 7.4 L D 7.8 L Urine 09/22/20 Range/Units 10:25 Urine Color YELLOW Urine Appearance HAZY Urine pH 5.5 (5.0-8.0) Ur Specific [place] >= 1.030 H (1.005-1.025) Urine Protein 2+ H (NEG-TRACE) MG/DL Urine Glucose (UA) 500 H (NEG) MG/DL All other labs normal. Assessment and Plan (1) Abdominal distension (gaseous): Status: Acute Patient presents for treatment of respiratory distress due to COVID-19. He was noted to have abdominal distension and abdominal x-ray revealed some dilated loops of bowel throughout the large and small bowel. Currently his abdomen is soft but slightly distended without tympany. He is tolerating a clear liquid diet and moving his bowels. Reviewed the abdominal x-ray revealed minimal dilatation of the small bowel with no evidence of obstruction. Patient probably could have his diet advanced as tolerated. No surgical intervention recommended.
[2020-09-24] MEDS: dexAMETHasone sod phosphate 4 MG/ML VIAL 6 MG IVPUSH (08:05)
[2020-09-24] MEDS: Insulin Lispro 100 UNIT/ML 3 ML VIAL SUBCUT ×4 (08:05→21:16)
[2020-09-24] MEDS: Enoxaparin Sodium 100 MG/ML SYRINGE 85 MG SUBCUT ×2 (08:06→21:16)
[2020-09-24] MEDS: polyethylene glycoL 3350 17 GM POWD.PACK PO (08:06)
[2020-09-24] MEDS: dilTIAZem HCL CD 180 MG CAP.ER.24H PO (08:07)
[2020-09-24] MEDS: Atorvastatin Calcium 20 MG TABLET PO (08:07)
[2020-09-24] MEDS: 0.9 % Sodium Chloride Flush 3 ML SYRINGE IVFLUSH ×3 (08:07→21:17)
[2020-09-24] MEDS: Aspirin Enteric Coated 81 MG TABLET.DR PO (08:07)
[2020-09-24 08:17] LABS: SLIDE REVIEW VERIFIED
--- NOTE | 2020-09-24 10:40 | P.PNIM_ITS ---
Subjective Subjective Date of Service: 09/24/20 Interval History: no abd pain, a but nauseous, loose stools, no sob Cardiovascular Cardiovascular: Reports no additional cardiovascular complaints Respiratory Respiratory: Reports no additional respiratory complaints Physical Exam Vital Signs: Vital Signs: Last Vital Signs Temp 98 F 09/24/20 06:54 Pulse 92 09/24/20 08:07 Resp 20 09/24/20 06:54 BP 149/74 H 09/24/20 08:07 Pulse Ox 89 L 09/24/20 06:54 Body Mass Index 29.5 General: AO X 3, no acute distress Resp: CTA bilateral CVS: S1,S2,RRR GI: distended but not tense or tender Neuro: motor grossly intact Psych: appropriate affect Objective Data Current Medications Generic Name Dose Route Start Last Admin Trade Name Freq PRN Reason Stop Dose Admin Acetaminophen 650 mg 09/22/20 08:25 09/23/20 02:19 Acetaminophen 325 Mg Tablet PO 650 mg Q6H PRN Administration Pain, Mild (Pain Scale 1-3) Aspirin 81 mg 09/22/20 09:00 09/24/20 08:07 Aspirin Enteric Coated 81 Mg Tablet.Dr PO 81 mg DAILY [facility] Administration Atorvastatin Calcium 20 mg 09/22/20 09:00 09/24/20 08:07 Atorvastatin Calcium 20 Mg Tablet PO 20 mg DAILY [facility] Administration Dexamethasone Sodium Phosphate 6 mg 09/22/20 09:00 09/24/20 08:05 Dexamethasone Sod Phosphate 4 Mg/Ml Vial IVPUSH 6 mg DAILY [facility] Administration Diltiazem HCl 180 mg 09/23/20 09:00 09/24/20 08:07 Diltiazem Hcl Cd 180 Mg Cap.Er.24h PO 180 mg DAILY [facility] Administration Protocol Docusate Sodium 100 mg 09/22/20 08:25 09/22/20 08:55 Docusate Sodium 100 Mg Capsule PO 100 mg DAILY PRN Administration Constipation Enoxaparin Sodium 85 mg 09/22/20 08:25 09/24/20 08:06 Enoxaparin Sodium 100 Mg/Ml Syringe 1 mg/kg (85 mg) 85 mg SUBCUT Administration Q12H [facility] Insulin Human Lispro 0 unit 09/22/20 08:25 09/24/20 08:05 Insulin Lispro 100 Unit/Ml 3 Ml Vial SUBCUT 8 unit QIDACHS [facility] Administration Protocol Morphine Sulfate 2 mg 09/23/20 04:08 09/23/20 12:48 Morphine Sulfate 2 Mg/Ml Cartridge IVPUSH 2 mg Q4H PRN Administration Pain, Severe (Pain Scale 7-10) Ondansetron HCl 4 mg 09/22/20 08:25 09/23/20 18:35 Ondansetron Hcl 4 Mg/2 Ml Vial IVPUSH 4 mg Q8H PRN Administration Nausea and Vomiting Pharmacy Consult 1 each 09/21/20 23:24 Consult Rx Perform Med Rec MISCELLANE ONCE PRN Consult order Polyethylene Glycol 17 gm 09/22/20 20:10 09/24/20 08:06 Polyethylene Glycol 3350 17 Gm Powd.Pack PO 17 gm DAILY [facility] Administration Polyethylene Glycol 17 gm 09/23/20 14:30 Polyethylene Glycol 3350 17 Gm Powd.Pack PO DAILY PRN constipation Sodium Chloride 3 ml 09/22/20 08:25 09/24/20 08:07 0.9 % Sodium Chloride Flush 3 Ml Syringe IVFLUSH 3 ml QSHIFT [facility] Administration Labs CBC & Chem 7: 09/24/20 05:52 09/24/20 05:52 Microbiology Microbiology Results: Microbiology 09/21/20 22:00 Blood - Venous Blood Culture - Preliminary No growth after 48 hours. 09/21/20 21:49 Blood - Venous Blood Culture - Preliminary No growth after 48 hours. Assessment and Plan (1) Hypoxia: Status: Deleted (2) Pneumonia due to COVID-19 virus: Status: Acute (3) Upper respiratory infection: Status: Deleted (4) Atrial fibrillation with RVR: Status: Acute (5) Acute respiratory failure with hypoxia: Status: Acute (6) CKD (chronic kidney disease), stage III: Status: Acute (7) Diabetes: Status: Acute (8) Hypertension: Status: Acute Assessment and Plan: 84-year-old male presented to the hospital with sob, afib rvr, abd distension sepsis poa due to viral sepsis from covid pneumonia complicated by acute hypoxic respiratory failure and afib with rvr continue decadron wean o2 as tolerated converted to sinus, continue therapeutic lovenox and Cardizem ileus surgery appreciated, tolerating clears, will advance to full liquid diabetes insulin CKD III stable hyperlipidemia statin
[2020-09-24 11:32] LABS: Glucose, Whole Blood 267 mg/dL (60-115)
[2020-09-24 16:15] LABS: Glucose, Whole Blood 265 mg/dL (60-115)
[2020-09-24 20:27] LABS: Glucose, Whole Blood 260 mg/dL (60-115)
[2020-09-24] MEDS: Morphine Sulfate 2 MG/ML CARTRIDGE IVPUSH (21:24)
[2020-09-25] VITALS (8 sets, daily range): BP systolic 145–166; BP diastolic 66–75; PULSE 82–97; RESP 16–25; TEMP 36.2–36.8; O2SAT 88–96; BMI 29.4
[2020-09-25 06:36] LABS: Basophils Percent Auto 0.1 % (0-2); MANUAL DIFF FLAG SCAN; Neutrophils Percent Auto 86.5 % (45-73); SCAN SMEAR FLAG 1
[2020-09-25 06:38] LABS: Hematocrit 30.3 % (42-52); Imm Gran Abs Auto 0.11 X10*3/uL (0.00-0.03); Lymphocytes Absolute Auto 0.8 X10*3/uL (1.2-4.9); Lymphocytes Percent Auto 7.4 % (20-40); Mean Corpuscular Hemoglobin 22.7 pg (27.0-33.0); Mean Corpuscular Volume 68.9 fL (80-98); Monocytes Absolute Auto 0.6 X10*3/uL (0.1-1.2); Neutrophils Absolute Auto 9.5 X10*3/uL (2.0-8.3); Platelet Count 160 X10*3/uL (160-400); Red Cell Distribution Width 13.9 % (11.0-16.0)
[2020-09-25 06:56] LABS: Anion Gap 17 (12-20); Blood Urea Nitrogen 64 mg/dL (9-16); Calcium 7.5 mg/dL (8.4-10.2); Carbon Dioxide 19 mmol/L (22-29); Chloride 102 mmol/L (96-108); Creatinine Clr Calc Pharmacy 26.3; Estimated Glomerular Filt Rate 32; Glucose Fasting 341 mg/dL (60-99); Potassium 4.5 mmol/l (3.3-5.1); Sodium 133 mmol/L (135-145)
[2020-09-25 07:18] LABS: PLT ABN DIST 1
[2020-09-25] MEDS: Insulin Lispro 100 UNIT/ML 3 ML VIAL SUBCUT ×4 (07:39→21:02)
[2020-09-25] MEDS: 0.9 % Sodium Chloride Flush 3 ML SYRINGE IVFLUSH ×3 (07:40→21:02)
[2020-09-25] MEDS: dexAMETHasone sod phosphate 4 MG/ML VIAL 6 MG IVPUSH (07:41)
[2020-09-25] MEDS: Enoxaparin Sodium 100 MG/ML SYRINGE 85 MG SUBCUT ×2 (07:41→21:01)
[2020-09-25] MEDS: dilTIAZem HCL CD 180 MG CAP.ER.24H PO (07:41)
[2020-09-25] MEDS: Aspirin Enteric Coated 81 MG TABLET.DR PO (07:42)
[2020-09-25] MEDS: Atorvastatin Calcium 20 MG TABLET PO (07:42)
[2020-09-25 08:04] LABS: Glucose, Whole Blood 300 mg/dL (60-115)
[2020-09-25 08:21] LABS: SLIDE REVIEW VERIFIED
--- NOTE | 2020-09-25 11:08 | P.PNIM_ITS ---
Subjective Subjective Date of Service: 09/25/20 Interval History: feeling better Cardiovascular Cardiovascular: Reports no additional cardiovascular complaints Respiratory Respiratory: Reports no additional respiratory complaints Physical Exam Vital Signs: Vital Signs: Last Vital Signs Temp 97.9 F 09/25/20 07:17 Pulse 89 09/25/20 07:41 Resp 20 09/25/20 07:17 BP 145/66 H 09/25/20 07:41 Pulse Ox 91 L 09/25/20 07:17 Body Mass Index 29.4 General: AO X 3, no acute distress Resp: CTA bilateral CVS: S1,S2,RRR GI: mild distension, non tender Neuro: motor grossly intact Psych: appropriate affect Objective Data Current Medications Generic Name Dose Route Start Last Admin Trade Name Freq PRN Reason Stop Dose Admin Acetaminophen 650 mg 09/22/20 08:25 09/23/20 02:19 Acetaminophen 325 Mg Tablet PO 650 mg Q6H PRN Administration Pain, Mild (Pain Scale 1-3) Aspirin 81 mg 09/22/20 09:00 09/25/20 07:42 Aspirin Enteric Coated 81 Mg Tablet.Dr PO 81 mg DAILY [facility] Administration Atorvastatin Calcium 20 mg 09/22/20 09:00 09/25/20 07:42 Atorvastatin Calcium 20 Mg Tablet PO 20 mg DAILY [facility] Administration Dexamethasone Sodium Phosphate 6 mg 09/22/20 09:00 09/25/20 07:41 Dexamethasone Sod Phosphate 4 Mg/Ml Vial IVPUSH 6 mg DAILY [facility] Administration Diltiazem HCl 180 mg 09/23/20 09:00 09/25/20 07:41 Diltiazem Hcl Cd 180 Mg Cap.Er.24h PO 180 mg DAILY [facility] Administration Protocol Docusate Sodium 100 mg 09/22/20 08:25 09/22/20 08:55 Docusate Sodium 100 Mg Capsule PO 100 mg DAILY PRN Administration Constipation Enoxaparin Sodium 85 mg 09/22/20 08:25 09/25/20 07:41 Enoxaparin Sodium 100 Mg/Ml Syringe 1 mg/kg (85 mg) 85 mg SUBCUT Administration Q12H [facility] Insulin Human Lispro 0 unit 09/22/20 08:25 09/25/20 07:39 Insulin Lispro 100 Unit/Ml 3 Ml Vial SUBCUT 6 unit QIDACHS [facility] Administration Protocol Morphine Sulfate 2 mg 09/23/20 04:08 09/24/20 21:24 Morphine Sulfate 2 Mg/Ml Cartridge IVPUSH 2 mg Q4H PRN Administration Pain, Severe (Pain Scale 7-10) Ondansetron HCl 4 mg 09/22/20 08:25 09/23/20 18:35 Ondansetron Hcl 4 Mg/2 Ml Vial IVPUSH 4 mg Q8H PRN Administration Nausea and Vomiting Pharmacy Consult 1 each 09/21/20 23:24 Consult Rx Perform Med Rec MISCELLANE ONCE PRN Consult order Polyethylene Glycol 17 gm 09/22/20 20:10 09/25/20 07:51 Polyethylene Glycol 3350 17 Gm Powd.Pack PO Not Given DAILY [facility] Polyethylene Glycol 17 gm 09/23/20 14:30 Polyethylene Glycol 3350 17 Gm Powd.Pack PO DAILY PRN constipation Sodium Chloride 3 ml 09/22/20 08:25 09/25/20 07:40 0.9 % Sodium Chloride Flush 3 Ml Syringe IVFLUSH 3 ml QSHIFT [facility] Administration Labs CBC & Chem 7: 09/25/20 05:44 09/25/20 05:44 Microbiology Microbiology Results: Microbiology 09/21/20 22:00 Blood - Venous Blood Culture - Preliminary No growth after 48 hours. 09/21/20 21:49 Blood - Venous Blood Culture - Preliminary No growth after 48 hours. Assessment and Plan (1) Hypoxia: Status: Deleted (2) Pneumonia due to COVID-19 virus: Status: Acute (3) Upper respiratory infection: Status: Deleted (4) Atrial fibrillation with RVR: Status: Acute (5) Acute respiratory failure with hypoxia: Status: Acute (6) CKD (chronic kidney disease), stage III: Status: Acute (7) Diabetes: Status: Acute (8) Hypertension: Status: Acute Assessment and Plan: 84-year-old male presented to the hospital with sob, afib rvr, abd distension sepsis poa due to viral sepsis from covid pneumonia complicated by acute hypoxic respiratory failure and afib with rvr continue decadron wean o2 as tolerated, was 78% on room air converted to sinus, continue therapeutic lovenox and Cardizem ileus surgery appreciated, tolerating clears, advanced to full liquid yesterday, will keep full liquids today and if does well, will advance to low residue tomorrow diabetes insulin CKD III stable hyperlipidemia statin
[2020-09-25 11:57] LABS: Glucose, Whole Blood 394 mg/dL (60-115)
--- NOTE | 2020-09-25 14:07 | MHC.CM.PN ---
Male 84 dx Covid+. DP is home no services. S.O. will provide transportation. CM will follow.
[2020-09-25 16:32] LABS: Glucose, Whole Blood 337 mg/dL (60-115)
[2020-09-25 20:52] LABS: Glucose, Whole Blood 321 mg/dL (60-115)
--- NOTE | 2020-09-25 23:51 | PC.NURSE ---
Pt spo2 88-89% on 5 L nasal cannula. RT to bedside. Placed on oxymizer at 10 L, spo2 95%. Will continue to wean as tolerated.
[2020-09-26] VITALS (9 sets, daily range): BP systolic 157–185; BP diastolic 70–79; PULSE 84–100; RESP 16–21; TEMP 36.2–36.8; O2SAT 91–96; BMI 29.9
[2020-09-26] MEDS: 0.9 % Sodium Chloride Flush 3 ML SYRINGE IVFLUSH ×3 (07:47→23:50)
[2020-09-26] MEDS: Enoxaparin Sodium 100 MG/ML SYRINGE 85 MG SUBCUT ×2 (07:47→20:44)
[2020-09-26] MEDS: Aspirin Enteric Coated 81 MG TABLET.DR PO (07:47)
[2020-09-26] MEDS: dilTIAZem HCL CD 180 MG CAP.ER.24H PO (07:47)
[2020-09-26] MEDS: Atorvastatin Calcium 20 MG TABLET PO (07:47)
[2020-09-26] MEDS: Insulin Lispro 100 UNIT/ML 3 ML VIAL SUBCUT ×4 (07:48→21:25)
[2020-09-26] MEDS: dexAMETHasone sod phosphate 4 MG/ML VIAL 6 MG IVPUSH (07:48)
[2020-09-26 08:01] LABS: Glucose, Whole Blood 359 mg/dL (60-115)
[2020-09-26] MEDS: Insulin Glargine,Hum.rec.anlog 100 UNIT/ML 10 ML VIAL 20 UNIT SUBCUT (08:59)
--- NOTE | 2020-09-26 10:48 | P.PNIM_ITS ---
Subjective Subjective Date of Service: 09/26/20 Interval History: no complaints Cardiovascular Cardiovascular: Reports no additional cardiovascular complaints Respiratory Respiratory: Reports no additional respiratory complaints Physical Exam Vital Signs: Vital Signs: Last Vital Signs Temp 98.1 F 09/26/20 07:26 Pulse 94 09/26/20 07:47 Resp 18 09/26/20 07:26 BP 185/77 H 09/26/20 07:47 Pulse Ox 91 L 09/26/20 07:26 Body Mass Index 29.9 General: AO X 3, no acute distress Resp: CTA bilateral CVS: S1,S2,RRR GI: soft, non tender, distended Neuro: motor grossly intact Psych: appropriate affect Objective Data Current Medications Generic Name Dose Route Start Last Admin Trade Name Freq PRN Reason Stop Dose Admin Acetaminophen 650 mg 09/22/20 08:25 09/23/20 02:19 Acetaminophen 325 Mg Tablet PO 650 mg Q6H PRN Administration Pain, Mild (Pain Scale 1-3) Aspirin 81 mg 09/22/20 09:00 09/26/20 07:47 Aspirin Enteric Coated 81 Mg Tablet.Dr PO 81 mg DAILY [facility] Administration Atorvastatin Calcium 20 mg 09/22/20 09:00 09/26/20 07:47 Atorvastatin Calcium 20 Mg Tablet PO 20 mg DAILY [facility] Administration Dexamethasone Sodium Phosphate 6 mg 09/22/20 09:00 09/26/20 07:48 Dexamethasone Sod Phosphate 4 Mg/Ml Vial IVPUSH 6 mg DAILY [facility] Administration Diltiazem HCl 180 mg 09/23/20 09:00 09/26/20 07:47 Diltiazem Hcl Cd 180 Mg Cap.Er.24h PO 180 mg DAILY [facility] Administration Protocol Docusate Sodium 100 mg 09/22/20 08:25 09/22/20 08:55 Docusate Sodium 100 Mg Capsule PO 100 mg DAILY PRN Administration Constipation Enoxaparin Sodium 85 mg 09/22/20 08:25 09/26/20 07:47 Enoxaparin Sodium 100 Mg/Ml Syringe 1 mg/kg (85 mg) 85 mg SUBCUT Administration Q12H [facility] Insulin Glargine 20 unit 09/26/20 09:00 09/26/20 08:59 Insulin Glargine,Hum.Rec.Anlog 100 Unit/Ml 10 Ml Vial SUBCUT 20 unit DAILY [facility] Administration Insulin Human Lispro 0 unit 09/22/20 08:25 09/26/20 07:48 Insulin Lispro 100 Unit/Ml 3 Ml Vial SUBCUT 10 unit QIDACHS [facility] Administration Protocol Morphine Sulfate 2 mg 09/23/20 04:08 09/24/20 21:24 Morphine Sulfate 2 Mg/Ml Cartridge IVPUSH 2 mg Q4H PRN Administration Pain, Severe (Pain Scale 7-10) Ondansetron HCl 4 mg 09/22/20 08:25 09/23/20 18:35 Ondansetron Hcl 4 Mg/2 Ml Vial IVPUSH 4 mg Q8H PRN Administration Nausea and Vomiting Pharmacy Consult 1 each 09/21/20 23:24 Consult Rx Perform Med Rec MISCELLANE ONCE PRN Consult order Polyethylene Glycol 17 gm 09/22/20 20:10 09/26/20 07:47 Polyethylene Glycol 3350 17 Gm Powd.Pack PO 17 gm DAILY [facility] Administration Polyethylene Glycol 17 gm 09/23/20 14:30 Polyethylene Glycol 3350 17 Gm Powd.Pack PO DAILY PRN constipation Sodium Chloride 3 ml 09/22/20 08:25 09/26/20 07:47 0.9 % Sodium Chloride Flush 3 Ml Syringe IVFLUSH 3 ml QSHIFT [facility] Administration Labs CBC & Chem 7: 09/25/20 05:44 09/25/20 05:44 Microbiology Microbiology Results: Microbiology 09/21/20 22:00 Blood - Venous Blood Culture - Preliminary No growth after 48 hours. 09/21/20 21:49 Blood - Venous Blood Culture - Preliminary No growth after 48 hours. Assessment and Plan (1) Hypoxia: Status: Deleted (2) Pneumonia due to COVID-19 virus: Status: Acute (3) Upper respiratory infection: Status: Deleted (4) Atrial fibrillation with RVR: Status: Acute (5) Acute respiratory failure with hypoxia: Status: Acute (6) CKD (chronic kidney disease), stage III: Status: Acute (7) Diabetes: Status: Acute (8) Hypertension: Status: Acute Assessment and Plan: 84-year-old male presented to the hospital with sob, afib rvr, abd distension sepsis poa due to viral sepsis from covid pneumonia complicated by acute hypoxic respiratory failure and afib with rvr continue decadron wean o2 as tolerated, continues to require moderate levels of o2 converted to sinus, continue therapeutic lovenox and Cardizem ileus advance to solids today diabetes insulin CKD III stable hyperlipidemia statin
[2020-09-26 11:08] LABS: Glucose, Whole Blood 372 mg/dL (60-115)
--- NOTE | 2020-09-26 15:06 | PC.NURSE ---
0730- POC 359. Dr. Weeks aware. No additional SSI ordered. 10 units SSI given. Lantus 20 units ordered, given per EMAR. Will continue to monitor. 1130- POC 372. Dr. Weeks made aware. No additional SSI ordered. Pt given 10 units SSI. Will continue to monitor.
[2020-09-26 16:18] LABS: Glucose, Whole Blood 379 mg/dL (60-115)
[2020-09-26] MEDS: Insulin Lispro 100 UNIT/ML 3 ML VIAL 10 UNIT SUBCUT (17:42)
--- NOTE | 2020-09-26 17:48 | PC.NURSE ---
pt asked to use bathroom. when he stood blood was noted on his bed pad. Examined pt, his scrotum is excoriated, has small amount of sero sanguineous drainage. will apply barrier cream and alert MD
--- NOTE | 2020-09-26 18:28 | PC.NURSE ---
fully examined pt's scrotum, he has excoriation on the scrotum under penis with white coating, and scant amount of drainage, also has redness and excoriation to groin where scrotum contacts thighs. Area is fungal appearing. He reports pain when area was cleaned. [place] text sent to MD, no new order at this time. will continue to observe and keep area clean and dry.
[2020-09-26 20:53] LABS: Glucose, Whole Blood 221 mg/dL (60-115)
[2020-09-27] VITALS (7 sets, daily range): BP systolic 163–189; BP diastolic 69–81; PULSE 78–108; RESP 18–20; TEMP 36.2–36.7; O2SAT 90–96; BMI 28.4
[2020-09-27 07:38] LABS: Imm Gran Abs Auto 0.07 X10*3/uL (0.00-0.03); Imm Gran Pct Auto 0.5 % (0.0-0.4); MANUAL DIFF FLAG SCAN; SCAN SMEAR FLAG 1
[2020-09-27 07:40] LABS: Basophils Percent Auto 0.1 % (0-2); Hematocrit 27.3 % (42-52); Lymphocytes Percent Auto 7.8 % (20-40); Mean Corpuscular Hemoglobin 22.8 pg (27.0-33.0); Mean Corpuscular Volume 69.1 fL (80-98); Monocytes Absolute Auto 0.6 X10*3/uL (0.1-1.2); Monocytes Percent Auto 4.6 % (2-11); Neutrophils Absolute Auto 11.2 X10*3/uL (2.0-8.3); Platelet Count 199 X10*3/uL (160-400); Red Blood Count 3.95 X10*6/uL (4.60-5.80); White Blood Count 12.9 X10*3/uL (4.8-10.8)
[2020-09-27 07:41] LABS: Glucose, Whole Blood 266 mg/dL (60-115)
[2020-09-27 07:45] LABS: D Dimer 487 NG/ML
[2020-09-27 07:46] LABS: PLT ABN DIST 1
[2020-09-27 08:03] LABS: Anion Gap 16 (12-20); Blood Urea Nitrogen 76 mg/dL (9-16); Calcium 7.5 mg/dL (8.4-10.2); Carbon Dioxide 20 mmol/L (22-29); Chloride 106 mmol/L (96-108); Creatinine Clr Calc Pharmacy 29.1; Estimated Glomerular Filt Rate 37; Glucose Fasting 229 mg/dL (60-99); Lactate Dehydrogenase 468 U/L (118-273); Potassium 4.9 mmol/l (3.3-5.1); Sodium 137 mmol/L (135-145)
[2020-09-27] MEDS: Enoxaparin Sodium 100 MG/ML SYRINGE 85 MG SUBCUT ×2 (08:06→21:06)
[2020-09-27] MEDS: dexAMETHasone sod phosphate 4 MG/ML VIAL 6 MG IVPUSH (08:06)
[2020-09-27] MEDS: 0.9 % Sodium Chloride Flush 3 ML SYRINGE IVFLUSH ×2 (08:07→16:57)
[2020-09-27] MEDS: Insulin Glargine,Hum.rec.anlog 100 UNIT/ML 10 ML VIAL 20 UNIT SUBCUT (08:07)
[2020-09-27] MEDS: dilTIAZem HCL CD 180 MG CAP.ER.24H PO (08:08)
[2020-09-27] MEDS: Insulin Lispro 100 UNIT/ML 3 ML VIAL SUBCUT ×4 (08:08→21:07)
[2020-09-27] MEDS: Aspirin Enteric Coated 81 MG TABLET.DR PO (08:09)
[2020-09-27] MEDS: Atorvastatin Calcium 20 MG TABLET PO (08:09)
[2020-09-27 08:18] LABS: SLIDE REVIEW VERIFIED
--- NOTE | 2020-09-27 10:37 | P.PNIM_ITS ---
Subjective Subjective Date of Service: 09/27/20 Interval History: sob Cardiovascular Cardiovascular: Reports no additional cardiovascular complaints Gastrointestinal Gastrointestinal: Reports no additional gastrointestinal complaints Physical Exam Vital Signs: Vital Signs: Last Vital Signs Temp 97.8 F 09/27/20 08:00 Pulse 108 H 09/27/20 08:08 Resp 20 09/27/20 08:00 BP 184/70 H 09/27/20 08:08 Pulse Ox 90 L 09/27/20 08:00 Body Mass Index 28.4 General: confused at times, no acute distress but ill appearing Resp: diminished CVS: S1,S2,RRR GI: soft, non tender, mildly distended Neuro: motor grossly intact Psych: aimpaired Objective Data Current Medications Generic Name Dose Route Start Last Admin Trade Name Freq PRN Reason Stop Dose Admin Acetaminophen 650 mg 09/22/20 08:25 09/23/20 02:19 Acetaminophen 325 Mg Tablet PO 650 mg Q6H PRN Administration Pain, Mild (Pain Scale 1-3) Aspirin 81 mg 09/22/20 09:00 09/27/20 08:09 Aspirin Enteric Coated 81 Mg Tablet.Dr PO 81 mg DAILY [facility] Administration Atorvastatin Calcium 20 mg 09/22/20 09:00 09/27/20 08:09 Atorvastatin Calcium 20 Mg Tablet PO 20 mg DAILY [facility] Administration Dexamethasone Sodium Phosphate 6 mg 09/22/20 09:00 09/27/20 08:06 Dexamethasone Sod Phosphate 4 Mg/Ml Vial IVPUSH 6 mg DAILY [facility] Administration Diltiazem HCl 180 mg 09/23/20 09:00 09/27/20 08:08 Diltiazem Hcl Cd 180 Mg Cap.Er.24h PO 180 mg DAILY [facility] Administration Protocol Docusate Sodium 100 mg 09/22/20 08:25 09/22/20 08:55 Docusate Sodium 100 Mg Capsule PO 100 mg DAILY PRN Administration Constipation Enoxaparin Sodium 85 mg 09/22/20 08:25 09/27/20 08:06 Enoxaparin Sodium 100 Mg/Ml Syringe 1 mg/kg (85 mg) 85 mg SUBCUT Administration Q12H [facility] Insulin Glargine 20 unit 09/26/20 09:00 09/27/20 08:07 Insulin Glargine,Hum.Rec.Anlog 100 Unit/Ml 10 Ml Vial SUBCUT 20 unit DAILY [facility] Administration Insulin Human Lispro 0 unit 09/22/20 08:25 09/27/20 08:08 Insulin Lispro 100 Unit/Ml 3 Ml Vial SUBCUT 6 unit QIDACHS [facility] Administration Protocol Morphine Sulfate 2 mg 09/23/20 04:08 09/24/20 21:24 Morphine Sulfate 2 Mg/Ml Cartridge IVPUSH 2 mg Q4H PRN Administration Pain, Severe (Pain Scale 7-10) Ondansetron HCl 4 mg 09/22/20 08:25 09/23/20 18:35 Ondansetron Hcl 4 Mg/2 Ml Vial IVPUSH 4 mg Q8H PRN Administration Nausea and Vomiting Pharmacy Consult 1 each 09/21/20 23:24 Consult Rx Perform Med Rec MISCELLANE ONCE PRN Consult order Polyethylene Glycol 17 gm 09/22/20 20:10 09/27/20 08:10 Polyethylene Glycol 3350 17 Gm Powd.Pack PO Not Given DAILY [facility] Polyethylene Glycol 17 gm 09/23/20 14:30 Polyethylene Glycol 3350 17 Gm Powd.Pack PO DAILY PRN constipation Sodium Chloride 3 ml 09/22/20 08:25 09/27/20 08:07 0.9 % Sodium Chloride Flush 3 Ml Syringe IVFLUSH 3 ml QSHIFT [facility] Administration Labs CBC & Chem 7: 09/27/20 06:24 09/27/20 06:23 Microbiology Microbiology Results: Microbiology 09/21/20 22:00 Blood - Venous Blood Culture - Final No growth after 5 days. 09/21/20 21:49 Blood - Venous Blood Culture - Final No growth after 5 days. Assessment and Plan (1) Hypoxia: Status: Deleted (2) Pneumonia due to COVID-19 virus: Status: Acute (3) Upper respiratory infection: Status: Deleted (4) Atrial fibrillation with RVR: Status: Acute (5) Acute respiratory failure with hypoxia: Status: Acute (6) CKD (chronic kidney disease), stage III: Status: Acute (7) Diabetes: Status: Acute (8) Hypertension: Status: Acute Assessment and Plan: 84-year-old male presented to the hospital with sob, afib rvr, abd distension sepsis poa due to viral sepsis from covid pneumonia complicated by acute hypoxic respiratory failure and afib with rvr continue decadron o2 requirements increasing converted to sinus, continue therapeutic lovenox and Cardizem ileus appears to be tolerating solids diabetes insulin CKD III stable hyperlipidemia statin
[2020-09-27 11:24] LABS: Glucose, Whole Blood 281 mg/dL (60-115)
--- NOTE | 2020-09-27 11:29 | PC.NURSE ---
TLC from right IJ removed,blue tip intact, no s/s of infection,no drainage.DSD applied
[2020-09-27 16:57] LABS: Glucose, Whole Blood 284 mg/dL (60-115)
--- NOTE | 2020-09-27 18:19 | PC.NURSE ---
CONTINUED ELEVATED BPS. UP TO 189/79 AT 1600 SCHEDULED VITAL SIGNS. PT IS CONFUSED. UNABLE TO FULLY ASSESS FOR SYMPTOMS. HOSPITALIST MADE AWARE. NO NEW ORDERS. WILL CONTINUE TO MONITOR.
[2020-09-27 21:19] LABS: Glucose, Whole Blood 268 mg/dL (60-115)
[2020-09-28] VITALS (12 sets, daily range): BP systolic 139–165; BP diastolic 61–70; PULSE 80–102; RESP 16–28; TEMP 35.9–36.6; O2SAT 86–96; BMI 28.4
[2020-09-28] MEDS: Metoprolol Tartrate 5 MG/5 ML VIAL IVPUSH (00:49)
--- NOTE | 2020-09-28 04:53 | MHC.PIE ---
P - PT REMOVES O2 DESPITE EDUCATION IN [place]. [place] OXIMIZER 15L DESAT @ 0315 WITH NO MINIMAL RECOVERY TO SAT 85% I - TITRATED O2 UPWARD WITH VENTIMASK 15L/55%FIO2 WITH SATS 95% E - WILL CONTINUE TO MONITOR WITH CONTINUOUS O2 SAT MONITORING P - BP ELEVAED 182/77 HR 104 @ MIDNOC ASSESSMENT, FREQ PAC'S OCCAS PVC. I - CORETEXT TO DR. MEREDITH, LOPRESSOR 5MG IV X1 GIVEN ORDERED E- REPEAT BP S/P LOPRESSOR HR 84 139/65 P - PT WITH EXCORIATED SCROTUM I - CLEANED/BARRIER CREAM APPLIED. AIR LOSS BED ORDERED. NONE ON IMC AVAILABLE. IVAN [place]USTIN RN NOTIFIED & WILL LOCATE E - CONTINUE REPOS Q2H & REPLACE TO AIR LOSS MATTRESS ONCE AVAILABLE
--- NOTE | 2020-09-28 07:00 | MHC.PIE ---
p - pt continent with assist to urinal & inc. with excoriated scrotum, i - cleaned & barrier cream applied, [place] cath applied and air loss mattress applied e - continue to monitor
[2020-09-28 07:49] LABS: Glucose, Whole Blood 281 mg/dL (60-115)
[2020-09-28] MEDS: Insulin Glargine,Hum.rec.anlog 100 UNIT/ML 10 ML VIAL 20 UNIT SUBCUT (07:52)
[2020-09-28] MEDS: Enoxaparin Sodium 100 MG/ML SYRINGE 85 MG SUBCUT ×2 (07:53→21:13)
[2020-09-28] MEDS: Insulin Lispro 100 UNIT/ML 3 ML VIAL SUBCUT ×4 (07:53→21:14)
[2020-09-28] MEDS: Atorvastatin Calcium 20 MG TABLET PO (07:54)
[2020-09-28] MEDS: dilTIAZem HCL CD 180 MG CAP.ER.24H PO (07:54)
[2020-09-28] MEDS: dexAMETHasone sod phosphate 4 MG/ML VIAL 6 MG IVPUSH (07:54)
[2020-09-28] MEDS: Aspirin Enteric Coated 81 MG TABLET.DR PO (07:54)
[2020-09-28] MEDS: 0.9 % Sodium Chloride Flush 3 ML SYRINGE IVFLUSH ×5 (07:55→22:53)
--- NOTE | 2020-09-28 10:50 | P.PNIM_ITS ---
Subjective Subjective Date of Service: 09/28/20 Interval History: unchanged Cardiovascular Cardiovascular: Reports no additional cardiovascular complaints Genitourinary Genitourinary: Reports no additional male genitourinary complaints Physical Exam Vital Signs: Vital Signs: Last Vital Signs Temp 97.9 F 09/28/20 07:49 Pulse 95 09/28/20 07:54 Resp 20 09/28/20 07:49 BP 158/70 H 09/28/20 07:54 Pulse Ox 96 09/28/20 07:49 Body Mass Index 28.4 General: Alert, no acute distress Resp: cracklesl CVS: S1,S2,RRR GI: soft, non tender, non distended Neuro: motor grossly intact Psych: appropriate affect Objective Data Current Medications Generic Name Dose Route Start Last Admin Trade Name Freq PRN Reason Stop Dose Admin Acetaminophen 650 mg 09/22/20 08:25 09/23/20 02:19 Acetaminophen 325 Mg Tablet PO 650 mg Q6H PRN Administration Pain, Mild (Pain Scale 1-3) Aspirin 81 mg 09/22/20 09:00 09/28/20 07:54 Aspirin Enteric Coated 81 Mg Tablet.Dr PO 81 mg DAILY [facility] Administration Atorvastatin Calcium 20 mg 09/22/20 09:00 09/28/20 07:54 Atorvastatin Calcium 20 Mg Tablet PO 20 mg DAILY [facility] Administration Dexamethasone Sodium Phosphate 6 mg 09/22/20 09:00 09/28/20 07:54 Dexamethasone Sod Phosphate 4 Mg/Ml Vial IVPUSH 6 mg DAILY [facility] Administration Diltiazem HCl 180 mg 09/23/20 09:00 09/28/20 07:54 Diltiazem Hcl Cd 180 Mg Cap.Er.24h PO 180 mg DAILY [facility] Administration Protocol Docusate Sodium 100 mg 09/22/20 08:25 09/22/20 08:55 Docusate Sodium 100 Mg Capsule PO 100 mg DAILY PRN Administration Constipation Enoxaparin Sodium 85 mg 09/22/20 08:25 09/28/20 07:53 Enoxaparin Sodium 100 Mg/Ml Syringe 1 mg/kg (85 mg) 85 mg SUBCUT Administration Q12H [facility] Insulin Glargine 20 unit 09/26/20 09:00 09/28/20 07:52 Insulin Glargine,Hum.Rec.Anlog 100 Unit/Ml 10 Ml Vial SUBCUT 20 unit DAILY [facility] Administration Insulin Human Lispro 0 unit 09/22/20 08:25 09/28/20 07:53 Insulin Lispro 100 Unit/Ml 3 Ml Vial SUBCUT 6 unit QIDACHS [facility] Administration Protocol Morphine Sulfate 2 mg 09/23/20 04:08 09/24/20 21:24 Morphine Sulfate 2 Mg/Ml Cartridge IVPUSH 2 mg Q4H PRN Administration Pain, Severe (Pain Scale 7-10) Ondansetron HCl 4 mg 09/22/20 08:25 09/23/20 18:35 Ondansetron Hcl 4 Mg/2 Ml Vial IVPUSH 4 mg Q8H PRN Administration Nausea and Vomiting Pharmacy Consult 1 each 09/21/20 23:24 Consult Rx Perform Med Rec MISCELLANE ONCE PRN Consult order Polyethylene Glycol 17 gm 09/22/20 20:10 09/28/20 07:55 Polyethylene Glycol 3350 17 Gm Powd.Pack PO Not Given DAILY [facility] Polyethylene Glycol 17 gm 09/23/20 14:30 Polyethylene Glycol 3350 17 Gm Powd.Pack PO DAILY PRN constipation Sodium Chloride 3 ml 09/22/20 08:25 09/28/20 07:55 0.9 % Sodium Chloride Flush 3 Ml Syringe IVFLUSH 3 ml QSHIFT [facility] Administration Labs CBC & Chem 7: 09/27/20 06:24 09/27/20 06:23 Microbiology Microbiology Results: Microbiology 09/21/20 22:00 Blood - Venous Blood Culture - Final No growth after 5 days. 09/21/20 21:49 Blood - Venous Blood Culture - Final No growth after 5 days. Assessment and Plan (1) Hypoxia: Status: Deleted (2) Pneumonia due to COVID-19 virus: Status: Acute (3) Upper respiratory infection: Status: Deleted (4) Atrial fibrillation with RVR: Status: Acute (5) Acute respiratory failure with hypoxia: Status: Acute (6) CKD (chronic kidney disease), stage III: Status: Acute (7) Diabetes: Status: Acute (8) Hypertension: Status: Acute Assessment and Plan: 84-year-old male presented to the hospital with sob, afib rvr, abd distension sepsis poa due to viral sepsis from covid pneumonia complicated by acute hypoxic respiratory failure and afib with rvr continue decadron o2 requirements continue to increase, but not tachypneic or sob converted to sinus, continue therapeutic lovenox and Cardizem ileus resolved diabetes insulin CKD III stable hyperlipidemia statin
[2020-09-28 11:32] LABS: Glucose, Whole Blood 335 mg/dL (60-115)
[2020-09-28] MEDS: Morphine Sulfate 2 MG/ML CARTRIDGE IVPUSH ×3 (11:50→22:43)
--- NOTE | 2020-09-28 12:25 | MHC.CM.PN ---
Male 84 dx Covid+ DP home no services S.O. will provide transportation.
[2020-09-28 16:18] LABS: Glucose, Whole Blood 312 mg/dL (60-115)
[2020-09-28 20:57] LABS: Glucose, Whole Blood 265 mg/dL (60-115)
[2020-09-29] VITALS (8 sets, daily range): BP systolic 138–182; BP diastolic 55–79; PULSE 98–120; RESP 20–22; TEMP 36.1–37.1; O2SAT 86–95; BMI 28.8
[2020-09-29] MEDS: Morphine Sulfate 2 MG/ML CARTRIDGE IVPUSH ×4 (06:28→23:51)
--- NOTE | 2020-09-29 06:39 | MHC.PIE ---
p - pt pulls O2 venti-mask off this am & is resistant to replacement of mask with this RN, desat to 73% i - called for help & RN/[employer]SEM[employer]ER immediate to room for assist. Venti-Mask reapplied - pt still pulling at VM . 100%NRB applied briefly to increase sat to 92% then VM replaced @ 15L 55%fio2. Morphine 2mg IV given for pt comfort e - pt more comfortable AEB no pulling @ venti-mask. sats 91-92% improved.
[2020-09-29 07:06] LABS: Hematocrit 23.1 % (42-52); Imm Gran Abs Auto 0.14 X10*3/uL (0.00-0.03); Imm Gran Pct Auto 1.1 % (0.0-0.4); MANUAL DIFF FLAG SCAN; Red Cell Distribution Width 14.4 % (11.0-16.0); SCAN SMEAR FLAG 1
[2020-09-29 07:08] LABS: Basophils Percent Auto 0.1 % (0-2); Lymphocytes Absolute Auto 0.9 X10*3/uL (1.2-4.9); Lymphocytes Percent Auto 7.1 % (20-40); Mean Corpuscular HGB Conc 32.9 g/dl (31.0-36.0); Mean Corpuscular Volume 69.8 fL (80-98); Mean Platelet Volume 12.4 fL (9.4-12.4); Monocytes Absolute Auto 0.5 X10*3/uL (0.1-1.2); Monocytes Percent Auto 4.1 % (2-11); Neutrophils Absolute Auto 11.6 X10*3/uL (2.0-8.3); Neutrophils Percent Auto 87.6 % (45-73); Platelet Count 226 X10*3/uL (160-400); Red Blood Count 3.31 X10*6/uL (4.60-5.80); White Blood Count 13.2 X10*3/uL (4.8-10.8)
[2020-09-29 07:15] LABS: NRBC Pct Auto 1.9 /100WBC (0.0-0.2); PLT ABN DIST 1
[2020-09-29 07:16] LABS: Hemoglobin 7.6 g/dl (14.0-18.0)
[2020-09-29 07:29] LABS: D Dimer 389 NG/ML
[2020-09-29 07:30] LABS: Anion Gap 15 (12-20); Blood Urea Nitrogen 118 mg/dL (9-16); Calcium 7.3 mg/dL (8.4-10.2); Carbon Dioxide 20 mmol/L (22-29); Chloride 109 mmol/L (96-108); Creatinine Clr Calc Pharmacy 20.6; Estimated Glomerular Filt Rate 24; Glucose Fasting 112 mg/dL (60-99); Potassium 5.1 mmol/l (3.3-5.1); Sodium 139 mmol/L (135-145)
[2020-09-29 07:39] LABS: Glucose, Whole Blood 127 mg/dL (60-115)
[2020-09-29 08:01] LABS: SLIDE REVIEW VERIFIED
--- NOTE | 2020-09-29 10:43 | P.PNIM_ITS ---
Subjective Subjective Date of Service: 09/29/20 Interval History: Persistent hypoxia and very confused, agitated combative at time Review of Systems Gen: no fever Resp: +sob, + cough CV: no chest, no CHAPMAN, no leg edema GI: No n/v, no abd pain Neuro: No confusion Physical Exam Vital Signs: Vital Signs: Last Vital Signs Temp 97.6 F 09/29/20 07:43 Pulse 112 H 09/29/20 07:43 Resp 20 09/29/20 07:43 BP 148/60 H 09/29/20 07:43 Pulse Ox 92 09/29/20 07:43 Body Mass Index 28.8 Const: Other: General: vert confused Resp: normal resp efffort CVS: S1,S2,rrr GI: +BS, NT, no distention Skin: No rash Neuro: motor grossly intact Psych: very confused Objective Data Current Medications Generic Name Dose Route Start Last Admin Trade Name Freq PRN Reason Stop Dose Admin Acetaminophen 650 mg 09/22/20 08:25 09/23/20 02:19 Acetaminophen 325 Mg Tablet PO 650 mg Q6H PRN Administration Pain, Mild (Pain Scale 1-3) Aspirin 81 mg 09/22/20 09:00 09/28/20 07:54 Aspirin Enteric Coated 81 Mg Tablet.Dr PO 81 mg DAILY [facility] Administration Atorvastatin Calcium 20 mg 09/22/20 09:00 09/28/20 07:54 Atorvastatin Calcium 20 Mg Tablet PO 20 mg DAILY [facility] Administration Dexamethasone Sodium Phosphate 6 mg 09/22/20 09:00 09/28/20 07:54 Dexamethasone Sod Phosphate 4 Mg/Ml Vial IVPUSH 6 mg DAILY [facility] Administration Diltiazem HCl 180 mg 09/23/20 09:00 09/28/20 07:54 Diltiazem Hcl Cd 180 Mg Cap.Er.24h PO 180 mg DAILY [facility] Administration Protocol Docusate Sodium 100 mg 09/22/20 08:25 09/22/20 08:55 Docusate Sodium 100 Mg Capsule PO 100 mg DAILY PRN Administration Constipation Enoxaparin Sodium 85 mg 09/22/20 08:25 09/28/20 21:13 Enoxaparin Sodium 100 Mg/Ml Syringe 1 mg/kg (85 mg) 85 mg SUBCUT Administration Q12H [facility]PL[facility] Insulin Glargine 20 unit 09/26/20 09:00 09/28/20 07:52 Insulin Glargine,Hum.Rec.Anlog 100 Unit/Ml 10 Ml Vial SUBCUT 20 unit DAILY [facility] Administration Insulin Human Lispro 0 unit 09/22/20 08:25 09/28/20 21:14 Insulin Lispro 100 Unit/Ml 3 Ml Vial SUBCUT 6 unit QIDACHS [facility] Administration Protocol Lorazepam 0.5 mg 09/29/20 10:01 Lorazepam 2 Mg/Ml Vial IVPUSH Q4H PRN Anxiety Morphine Sulfate 2 mg 09/23/20 04:08 09/29/20 06:28 Morphine Sulfate 2 Mg/Ml Cartridge IVPUSH 2 mg Q4H PRN Administration Pain, Severe (Pain Scale 7-10) Ondansetron HCl 4 mg 09/22/20 08:25 09/23/20 18:35 Ondansetron Hcl 4 Mg/2 Ml Vial IVPUSH 4 mg Q8H PRN Administration Nausea and Vomiting Pharmacy Consult 1 each 09/21/20 23:24 Consult Rx Perform Med Rec MISCELLANE ONCE PRN Consult order Polyethylene Glycol 17 gm 09/22/20 20:10 09/28/20 07:55 Polyethylene Glycol 3350 17 Gm Powd.Pack PO Not Given DAILY [facility] Polyethylene Glycol 17 gm 09/23/20 14:30 Polyethylene Glycol 3350 17 Gm Powd.Pack PO DAILY PRN constipation Sodium Chloride 3 ml 09/22/20 08:25 09/28/20 22:53 0.9 % Sodium Chloride Flush 3 Ml Syringe IVFLUSH 3 ml QSHIFT [facility] Administration Labs CBC & Chem 7: 09/29/20 06:00 09/29/20 06:00 Microbiology Microbiology Results: Microbiology 09/21/20 22:00 Blood - Venous Blood Culture - Final No growth after 5 days. 09/21/20 21:49 Blood - Venous Blood Culture - Final No growth after 5 days. Assessment and Plan (1) Hypoxia: Status: Deleted (2) Pneumonia due to COVID-19 virus: Status: Acute (3) Upper respiratory infection: Status: Deleted (4) Atrial fibrillation with RVR: Status: Acute (5) Acute respiratory failure with hypoxia: Status: Acute (6) CKD (chronic kidney disease), stage III: Status: Acute (7) Diabetes: Status: Acute (8) Hypertension: Status: Acute Assessment and Plan: 84-year-old male presented to the hospital with sob, afib rvr, abd distension sepsis poa due to viral sepsis from covid pneumonia complicated by acute hypoxic respiratory failure and afib with rvr continue decadron Unable to wean off O2 at this point AFIB conversted to sinus -contineu anticoagulation with Lovenox, changed to eliquis when able -cardizem to control heart rate ileus resolved diabetes insulin CKD III stable hyperlipidemia statin delirium--overall poor prognosis and will discuss with family
[2020-09-29] MEDS: dexAMETHasone sod phosphate 4 MG/ML VIAL 6 MG IVPUSH (11:05)
[2020-09-29] MEDS: Enoxaparin Sodium 100 MG/ML SYRINGE 85 MG SUBCUT ×2 (11:05→19:32)
[2020-09-29] MEDS: Insulin Glargine,Hum.rec.anlog 100 UNIT/ML 10 ML VIAL 20 UNIT SUBCUT (11:06)
[2020-09-29 11:23] LABS: Glucose, Whole Blood 183 mg/dL (60-115)
--- NOTE | 2020-09-29 11:32 | MHC.CLN ---
F/U POOR PO 25-50% DIET RX: LOW RESIDUE-PT WOULD BENEFIT FROM 1800 DM NOTED ESPERANZA 12 WITH RED SCROTUM MD TO CALL FAMILY- OVERALL POOR PROGNOSIS WILL START GLUCERNA TO INCREASE KCALS AND FOLLOW WITH CARE TEAM
[2020-09-29] MEDS: LORazepam 2 MG/ML VIAL 0.5 MG IVPUSH ×2 (11:44→22:12)
--- NOTE | 2020-09-29 11:51 | MHC.CM.PN ---
Addendum entered by Celine Kumar 09/29/20 12:48: CONTACT # FOR MICHAEL [phone] Original Note: Case management note. Spoke with S.OMaria Eugenia Schilling Perez via translator/interpreter. She gave the name and contact # for Michael. Michael is a close family friend. A copy of HCP requested. She stated that she does not have a copy; but [facility] has a HCP on file. Search of record did not locate HCP document on file. [facility] was contacted. Spoke with Irina from [facility]. [facility] has a copy of HCP 2013. It designates Tonie Perez his S.O. as his HCP. Notified MD and RDory. HCP recieved and on file.
[2020-09-29] MEDS: 0.9 % Sodium Chloride Flush 3 ML SYRINGE IVFLUSH (15:25)
[2020-09-29] MEDS: Dextrose 5 % and 0.45 % NaCl 1,000 ML 100 ML IVCONT (15:58)
[2020-09-29 16:16] LABS: Glucose, Whole Blood 248 mg/dL (60-115)
[2020-09-29] MEDS: Insulin Lispro 100 UNIT/ML 3 ML VIAL SUBCUT ×2 (16:57→21:17)
[2020-09-29 21:16] LABS: Glucose, Whole Blood 279 mg/dL (60-115)
--- NOTE | 2020-09-29 21:34 | W.MHC.ACPN ---
Advanced Care Planning Note Advanced Care Planning Note Discussed with: family member(s) (step daughter Laurel) Time spent (in minutes): 9 Narrative: I spoke Laurel the patient's step daughter and HCP since 2017 and we discussed patient's present condition with covid with acute hypoxic respitatory failure that is resistant to oxygen and condition further agravated by delirium with agitation and gurarded prognosis. We discussed code status which according to Laurel's the patient's had wished for everyting to be done and the fact the she clearly understand that mechaical ventilation and CPR are unlikely to help but family but there is no consensus amongh family members as to how to proceed. She (Laurel) will have further discussion with family make a decision so for now patient remains full code. Problems Discussed (1) Hypoxia: (2) Pneumonia due to COVID-19 virus: (3) Upper respiratory infection: (4) Atrial fibrillation with RVR: (5) Acute respiratory failure with hypoxia: (6) CKD (chronic kidney disease), stage III: (7) Diabetes: (8) Hypertension:
[2020-09-30] VITALS (14 sets, daily range): BP systolic 117–182; BP diastolic 60–75; PULSE 105–133; RESP 18–32; TEMP 36.2–37; O2SAT 83–97; BMI 28.0
[2020-09-30] MEDS: LORazepam 2 MG/ML VIAL 0.5 MG IVPUSH ×4 (02:15→22:12)
[2020-09-30] MEDS: Morphine Sulfate 2 MG/ML CARTRIDGE IVPUSH ×4 (04:15→22:12)
[2020-09-30] MEDS: Dextrose 5 % and 0.45 % NaCl 1,000 ML 100 ML IVCONT ×3 (06:04→22:23)
--- NOTE | 2020-09-30 06:43 | PC.NURSE ---
PT SATTING WELL ON 15L OXYMIZER THROUGHOUT NIGHT. AT 0500 PT SATTING 82-85% CONTINUOUSLY. ATTEMPTED VENTI AND NRB, PT SATTING WELL BUT UNWILLING TO KEEP MASK ON. MD AWARE. 100% HIFLO ORDERED SATTING 92%.
[2020-09-30 07:42] LABS: Glucose, Whole Blood 275 mg/dL (60-115)
[2020-09-30] MEDS: dexAMETHasone sod phosphate 4 MG/ML VIAL 6 MG IVPUSH (09:30)
[2020-09-30] MEDS: Insulin Lispro 100 UNIT/ML 3 ML VIAL SUBCUT ×3 (09:30→17:08)
[2020-09-30] MEDS: 0.9 % Sodium Chloride Flush 3 ML SYRINGE IVFLUSH ×2 (09:30→15:24)
[2020-09-30] MEDS: Enoxaparin Sodium 100 MG/ML SYRINGE 85 MG SUBCUT ×2 (09:30→19:59)
[2020-09-30 11:28] LABS: Glucose, Whole Blood 353 mg/dL (60-115)
--- NOTE | 2020-09-30 12:10 | HO.PM.IMPN ---
Subjective Subjective Date of Service: 09/30/20 Interval History: Persistent hypoxia and on high flow O2, minimally responsive Review of Systems Review of Systems: Yes Unobtainable due to mental status Physical Exam Vital Signs: Vital Signs: Last Vital Signs Temp 98.6 F 09/30/20 11:57 Pulse 122 H 09/30/20 11:57 Resp 28 H 09/30/20 12:04 BP 135/70 09/30/20 11:57 Pulse Ox 90 L 09/30/20 11:57 Body Mass Index 28.0 Const: Other: General: unresponsive Resp: normal resp efffort CVS: S1,S2,rrr GI: +BS, NT, no distention Skin: No rash Neuro: motor grossly intact Psych: very confused Objective Data Current Medications Generic Name Dose Route Start Last Admin Trade Name Freq PRN Reason Stop Dose Admin Acetaminophen 650 mg 09/22/20 08:25 09/23/20 02:19 Acetaminophen 325 Mg Tablet PO 650 mg Q6H PRN Administration Pain, Mild (Pain Scale 1-3) Aspirin 81 mg 09/22/20 09:00 09/30/20 10:43 Aspirin Enteric Coated 81 Mg Tablet.Dr PO Not Given DAILY [facility] Atorvastatin Calcium 20 mg 09/22/20 09:00 09/30/20 10:43 Atorvastatin Calcium 20 Mg Tablet PO Not Given DAILY [facility] Dexamethasone Sodium Phosphate 6 mg 09/22/20 09:00 09/30/20 09:30 Dexamethasone Sod Phosphate 4 Mg/Ml Vial IVPUSH 6 mg DAILY [facility] Administration Diltiazem HCl 180 mg 09/23/20 09:00 09/30/20 10:43 Diltiazem Hcl Cd 180 Mg Cap.Er.24h PO Not Given DAILY [facility] Protocol Docusate Sodium 100 mg 09/22/20 08:25 09/22/20 08:55 Docusate Sodium 100 Mg Capsule PO 100 mg DAILY PRN Administration Constipation Enoxaparin Sodium 85 mg 09/22/20 08:25 09/30/20 09:30 Enoxaparin Sodium 100 Mg/Ml Syringe 1 mg/kg (85 mg) 85 mg SUBCUT Administration Q12H [facility] Dextrose/Sodium Chloride 1,000 mls @ 100 mls/hr 09/29/20 15:45 09/30/20 06:04 D51/2ns IVCONT 100 mls/hr .Q10H [facility] Administration Insulin Glargine 20 unit 09/26/20 09:00 09/30/20 10:43 Insulin Glargine,Hum.Rec.Anlog 100 Unit/Ml 10 Ml Vial SUBCUT Not Given DAILY [facility] Insulin Human Lispro 0 unit 09/22/20 08:25 09/30/20 12:08 Insulin Lispro 100 Unit/Ml 3 Ml Vial SUBCUT 10 unit QIDACHS [facility] Administration Protocol Lorazepam 0.5 mg 09/29/20 10:01 09/30/20 12:08 Lorazepam 2 Mg/Ml Vial IVPUSH 0.5 mg Q4H PRN Administration Anxiety Morphine Sulfate 2 mg 09/23/20 04:08 09/30/20 10:48 Morphine Sulfate 2 Mg/Ml Cartridge IVPUSH 2 mg Q4H PRN Administration Pain, Severe (Pain Scale 7-10) Ondansetron HCl 4 mg 09/22/20 08:25 09/23/20 18:35 Ondansetron Hcl 4 Mg/2 Ml Vial IVPUSH 4 mg Q8H PRN Administration Nausea and Vomiting Pharmacy Consult 1 each 09/21/20 23:24 Consult Rx Perform Med Rec MISCELLANE ONCE PRN Consult order Polyethylene Glycol 17 gm 09/22/20 20:10 09/30/20 10:44 Polyethylene Glycol 3350 17 Gm Powd.Pack PO Not Given DAILY [facility] Polyethylene Glycol 17 gm 09/23/20 14:30 Polyethylene Glycol 3350 17 Gm Powd.Pack PO DAILY PRN constipation Sodium Chloride 3 ml 09/22/20 08:25 09/30/20 09:30 0.9 % Sodium Chloride Flush 3 Ml Syringe IVFLUSH 3 ml QSHIFT [facility] Administration Labs CBC & Chem 7: 09/29/20 06:00 09/29/20 06:00 Microbiology Microbiology Results: Microbiology 09/21/20 22:00 Blood - Venous Blood Culture - Final No growth after 5 days. 09/21/20 21:49 Blood - Venous Blood Culture - Final No growth after 5 days. Assessment and Plan (1) Hypoxia: Status: Deleted (2) Pneumonia due to COVID-19 virus: Status: Acute (3) Upper respiratory infection: Status: Deleted (4) Atrial fibrillation with RVR: Status: Acute (5) Acute respiratory failure with hypoxia: Status: Acute (6) CKD (chronic kidney disease), stage III: Status: Acute (7) Diabetes: Status: Acute (8) Hypertension: Status: Acute Assessment and Plan: 84-year-old male presented to the hospital with sob, afib rvr, abd distension sepsis poa due to viral sepsis from covid pneumonia complicated by acute hypoxic respiratory failure and afib with rvr continue decadron Unable to wean off O2 at this point AFIB conversted to sinus -contineu anticoagulation with Lovenox, changed to eliquis when able -cardizem to control heart rate ileus resolved diabetes insulin CKD III stable hyperlipidemia statin delirium--overall poor prognosis and will discuss with family. Goals of care discussed with family yesterday and will revisit today
--- NOTE | 2020-09-30 12:54 | MHC.CM.PN ---
Male Covid+ DP further assessment will be required for DISPO. The DP was home no services originally. CM will follow.
[2020-09-30 16:48] LABS: Glucose, Whole Blood 237 mg/dL (60-115)
--- NOTE | 2020-09-30 18:35 | PC.NURSE ---
pt was slightly restless at begining of the shift, give morphine and ativan to help his restless and breathing with +effect, however, desated to the 70s and heart rate to the 130s. MD aware of it RT called. RT increased his HFNC to 90%55L. family updated and explained to family pt might eventaully has to be intubated in the near future. family verbally understood and would still like to keep pt as FC for now.
[2020-09-30 21:18] LABS: Glucose, Whole Blood 170 mg/dL (60-115)
[2020-10-01] VITALS (12 sets, daily range): BP systolic 142–156; BP diastolic 48–72; PULSE 97–135; RESP 18–24; TEMP 36.1–37.2; O2SAT 90–98; BMI 29.0
[2020-10-01] MEDS: LORazepam 2 MG/ML VIAL 0.5 MG IVPUSH ×5 (02:12→19:44)
[2020-10-01] MEDS: Morphine Sulfate 2 MG/ML CARTRIDGE IVPUSH ×5 (02:12→19:52)
[2020-10-01 07:43] LABS: Glucose, Whole Blood 411 mg/dL (60-115)
[2020-10-01] MEDS: Dextrose 5 % and 0.45 % NaCl 1,000 ML 100 ML IVCONT ×2 (08:10→17:05)
[2020-10-01] MEDS: Enoxaparin Sodium 100 MG/ML SYRINGE 85 MG SUBCUT ×2 (08:10→19:47)
[2020-10-01] MEDS: Insulin Lispro 100 UNIT/ML 3 ML VIAL SUBCUT ×3 (08:13→17:06)
[2020-10-01] MEDS: Insulin Glargine,Hum.rec.anlog 100 UNIT/ML 10 ML VIAL 20 UNIT SUBCUT (08:13)
[2020-10-01] MEDS: dexAMETHasone sod phosphate 4 MG/ML VIAL 6 MG IVPUSH (08:14)
[2020-10-01] MEDS: 0.9 % Sodium Chloride Flush 3 ML SYRINGE IVFLUSH ×3 (08:28→23:13)
[2020-10-01 11:09] LABS: Glucose, Whole Blood 363 mg/dL (60-115)
--- NOTE | 2020-10-01 13:48 | P.PNIM_ITS ---
Subjective Subjective Date of Service: 10/01/20 Interval History: Persistent hypoxia and on high flow O2, minimally responsive Review of Systems Review of Systems: Yes Unobtainable due to mental status Physical Exam Vital Signs: Vital Signs: Last Vital Signs Temp 97.6 F 10/01/20 11:01 Pulse 135 H 10/01/20 11:01 Resp 24 H 10/01/20 11:26 BP 145/72 H 10/01/20 11:01 Pulse Ox 98 10/01/20 11:01 Body Mass Index 29.0 Const: Other: General: unresponsive Resp: normal resp efffort CVS: regular GI: +BS, NT, no distention Skin: No rash Neuro: moves freely Objective Data Current Medications Generic Name Dose Route Start Last Admin Trade Name Freq PRN Reason Stop Dose Admin Acetaminophen 650 mg 09/22/20 08:25 09/23/20 02:19 Acetaminophen 325 Mg Tablet PO 650 mg Q6H PRN Administration Pain, Mild (Pain Scale 1-3) Aspirin 81 mg 09/22/20 09:00 10/01/20 08:25 Aspirin Enteric Coated 81 Mg Tablet.Dr PO Not Given DAILY [facility] Atorvastatin Calcium 20 mg 09/22/20 09:00 10/01/20 08:26 Atorvastatin Calcium 20 Mg Tablet PO Not Given DAILY [facility] Dexamethasone Sodium Phosphate 6 mg 09/22/20 09:00 10/01/20 08:14 Dexamethasone Sod Phosphate 4 Mg/Ml Vial IVPUSH 6 mg DAILY [facility] Administration Diltiazem HCl 180 mg 09/23/20 09:00 10/01/20 08:26 Diltiazem Hcl Cd 180 Mg Cap.Er.24h PO Not Given DAILY [facility] Protocol Docusate Sodium 100 mg 09/22/20 08:25 09/22/20 08:55 Docusate Sodium 100 Mg Capsule PO 100 mg DAILY PRN Administration Constipation Enoxaparin Sodium 85 mg 09/22/20 08:25 10/01/20 08:10 Enoxaparin Sodium 100 Mg/Ml Syringe 1 mg/kg (85 mg) 85 mg SUBCUT Administration Q12H [facility] Dextrose/Sodium Chloride 1,000 mls @ 100 mls/hr 09/29/20 15:45 10/01/20 08:10 D51/2ns IVCONT 100 mls/hr .Q10H [facility] Administration Insulin Glargine 20 unit 09/26/20 09:00 10/01/20 08:13 Insulin Glargine,Hum.Rec.Anlog 100 Unit/Ml 10 Ml Vial SUBCUT 20 unit DAILY [facility] Administration Insulin Human Lispro 0 unit 09/22/20 08:25 10/01/20 11:08 Insulin Lispro 100 Unit/Ml 3 Ml Vial SUBCUT 10 unit QIDACHS [facility] Administration Protocol Lorazepam 0.5 mg 09/29/20 10:01 10/01/20 11:04 Lorazepam 2 Mg/Ml Vial IVPUSH 0.5 mg Q4H PRN Administration Anxiety Morphine Sulfate 2 mg 09/23/20 04:08 10/01/20 10:59 Morphine Sulfate 2 Mg/Ml Cartridge IVPUSH 2 mg Q4H PRN Administration Pain, Severe (Pain Scale 7-10) Ondansetron HCl 4 mg 09/22/20 08:25 09/23/20 18:35 Ondansetron Hcl 4 Mg/2 Ml Vial IVPUSH 4 mg Q8H PRN Administration Nausea and Vomiting Pharmacy Consult 1 each 09/21/20 23:24 Consult Rx Perform Med Rec MISCELLANE ONCE PRN Consult order Polyethylene Glycol 17 gm 09/22/20 20:10 10/01/20 08:26 Polyethylene Glycol 3350 17 Gm Powd.Pack PO Not Given DAILY [facility] Polyethylene Glycol 17 gm 09/23/20 14:30 Polyethylene Glycol 3350 17 Gm Powd.Pack PO DAILY PRN constipation Sodium Chloride 3 ml 09/22/20 08:25 10/01/20 08:28 0.9 % Sodium Chloride Flush 3 Ml Syringe IVFLUSH 3 ml QSHIFT [facility] Administration Labs CBC & Chem 7: 09/29/20 06:00 09/29/20 06:00 Microbiology Microbiology Results: Microbiology 09/21/20 22:00 Blood - Venous Blood Culture - Final No growth after 5 days. 09/21/20 21:49 Blood - Venous Blood Culture - Final No growth after 5 days. Assessment and Plan (1) Hypoxia: Status: Deleted (2) Pneumonia due to COVID-19 virus: Status: Acute (3) Upper respiratory infection: Status: Deleted (4) Atrial fibrillation with RVR: Status: Acute (5) Acute respiratory failure with hypoxia: Status: Acute (6) CKD (chronic kidney disease), stage III: Status: Acute (7) Diabetes: Status: Acute (8) Hypertension: Status: Acute Assessment and Plan: 84-year-old male presented to the hospital with sob, afib rvr, abd distension sepsis poa due to viral sepsis from covid pneumonia complicated by acute hypoxic respiratory failure and afib with rvr continue decadron Unable to wean off O2 at this point AFIB in sinus -contineu anticoagulation with Lovenox, changed to eliquis when able -cardizem to control heart rate ileus resolved diabetes insulin CKD III stable hyperlipidemia statin delirium--overall poor prognosis and will discuss with family. I continue to talk to Laurel health care proxy and want continue with full code Will get nutrition input to for options to feed. Prognosis is poor
[2020-10-01 14:54] LABS: Hemoglobin 7.1 g/dl (14.0-18.0); Mean Corpuscular HGB Conc 32.3 g/dl (31.0-36.0); Mean Corpuscular Hemoglobin 23.4 pg (27.0-33.0); Mean Corpuscular Volume 72.6 fL (80-98); Mean Platelet Volume 12.5 fL (9.4-12.4); Platelet Count 256 X10*3/uL (160-400); Red Blood Count 3.03 X10*6/uL (4.60-5.80); Red Cell Distribution Width 15.6 % (11.0-16.0)
[2020-10-01 14:55] LABS: NRBC Pct Auto 4.6 /100WBC (0.0-0.2)
[2020-10-01 15:19] LABS: Anion Gap 15 (12-20); Blood Urea Nitrogen 104 mg/dL (9-16); Calcium 7.1 mg/dL (8.4-10.2); Carbon Dioxide 18 mmol/L (22-29); Chloride 118 mmol/L (96-108); Creatinine Clr Calc Pharmacy 21.6; Estimated Glomerular Filt Rate 26; Glucose Random 270 mg/dL (60-115); Potassium 5.7 mmol/l (3.3-5.1); Sodium 145 mmol/L (135-145)
[2020-10-01 15:59] LABS: Glucose, Whole Blood 212 mg/dL (60-115)
[2020-10-01] MEDS: Metoprolol Tartrate 5 MG/5 ML VIAL 2.5 MG IVPUSH (20:40)
[2020-10-01] MEDS: Sodium Chloride 0.45 % 1,000 ML 150 ML IVCONT (22:16)
[2020-10-01 23:17] LABS: Anion Gap 14 (12-20); Carbon Dioxide 20 mmol/L (22-29); Chloride 120 mmol/L (96-108); Potassium 5.7 mmol/l (3.3-5.1); Sodium 148 mmol/L (135-145)
[2020-10-02] VITALS (13 sets, daily range): BP systolic 124–192; BP diastolic 51–84; PULSE 108–134; RESP 18–28; TEMP 36.1–37; O2SAT 50–98; BMI 29.1
[2020-10-02] MEDS: Insulin Regular, Human 100 UNIT/ML 3 ML VIAL 8 UNIT IVPUSH (00:26)
[2020-10-02] MEDS: Morphine Sulfate 2 MG/ML CARTRIDGE IVPUSH ×7 (01:13→19:21)
[2020-10-02 01:30] LABS: Glucose, Whole Blood 149 mg/dL (60-115)
[2020-10-02 01:30] LABS: Glucose, Whole Blood 138 mg/dL (60-115)
[2020-10-02 02:34] LABS: Anion Gap 16 (12-20); Blood Urea Nitrogen 95 mg/dL (9-16); Carbon Dioxide 17 mmol/L (22-29); Chloride 119 mmol/L (96-108); Creatinine Clr Calc Pharmacy 21.8; Estimated Glomerular Filt Rate 26; Glucose Random 117 mg/dL (60-115); Potassium 5.2 mmol/l (3.3-5.1); Sodium 147 mmol/L (135-145)
[2020-10-02] MEDS: LORazepam 2 MG/ML VIAL 0.5 MG IVPUSH ×4 (02:45→16:03)
--- NOTE | 2020-10-02 02:52 | PC.NURSE ---
Pt restless at times, not responsive, non verbal, pulling at monitor leads/high flow. SPO2 mid 80's. Pt placed on NRB 100%, and high flow titrated to 100% FIO2, 60L. Sats 90-94%. Ativan and morphine given per EMAR for restlessness. Pt tachycardic 140's, made aware. STAT 2.5 mg IV Lopressor given with some improvement, HR 100-110's. 22:00 labs, K+ 5.7. D50 and 8units of IV humalog R given. POC at 04:40; 117. Repeat BMP k+ 5.2. Night hospitalist updated. Will continue to monitor.
[2020-10-02] MEDS: Metoprolol Tartrate 5 MG/5 ML VIAL IVPUSH (06:00)
[2020-10-02 06:25] LABS: Hematocrit 22.8 % (42-52); Mean Corpuscular HGB Conc 30.7 g/dl (31.0-36.0); Mean Corpuscular Hemoglobin 22.7 pg (27.0-33.0); Mean Corpuscular Volume 73.8 fL (80-98); Mean Platelet Volume 12.7 fL (9.4-12.4); Platelet Count 261 X10*3/uL (160-400); Red Blood Count 3.09 X10*6/uL (4.60-5.80); Red Cell Distribution Width 16.3 % (11.0-16.0); White Blood Count 16.5 X10*3/uL (4.8-10.8)
--- NOTE | 2020-10-02 06:25 | MHC.PIE ---
P: Tachycardia HR >130's from [id number]. I: MD made aware. Per MD, 5 mg of Lopressor IVP given with good effect. BP:124/60 HR 134. E: HR mainatined 108-110's. BP:127/51. Will continue to monitor.
[2020-10-02 06:56] LABS: NRBC Pct Auto 2.7 /100WBC (0.0-0.2)
[2020-10-02 07:11] LABS: Anion Gap 19 (12-20); Blood Urea Nitrogen 92 mg/dL (9-16); Calcium 7.1 mg/dL (8.4-10.2); Carbon Dioxide 14 mmol/L (22-29); Chloride 120 mmol/L (96-108); Creatinine Clr Calc Pharmacy 22.8; Estimated Glomerular Filt Rate 27; Glucose Random 117 mg/dL (60-115); Potassium 5.8 mmol/l (3.3-5.1); Sodium 147 mmol/L (135-145)
--- NOTE | 2020-10-02 07:23 | PC.RT ---
pt remains on 100% HFNC with 100% NRB MAsk. Pt RR 26 with increased paradoxical respiartions. bs: Crackles meghann half way up. hr 114 sats 95%. Discussing aplab with RN now as well as Hospiatalist Dr. Simeon.
[2020-10-02] MEDS: Enoxaparin Sodium 100 MG/ML SYRINGE 85 MG SUBCUT (07:28)
[2020-10-02] MEDS: dexAMETHasone sod phosphate 4 MG/ML VIAL 6 MG IVPUSH (07:28)
[2020-10-02] MEDS: 0.9 % Sodium Chloride Flush 3 ML SYRINGE IVFLUSH ×2 (07:28→15:16)
[2020-10-02 07:47] LABS: Glucose, Whole Blood 126 mg/dL (60-115)
[2020-10-02 08:10] LABS: Pt Ventilation O2% 100%
[2020-10-02 08:13] LABS: ABG PCO2 31 mmhg (32-45); Base Excess ABG -6.5; HCO3 ABG 18 mmol/l (22-26); PO2 ABG 87 mmhg (83-108); pH ABG 7.39 (7.35-7.45)
--- NOTE | 2020-10-02 11:48 | P.PNIM_ITS ---
Subjective Subjective Date of Service: 10/02/20 Interval History: Seen in f/u for covid related acute hypoxic respiratory, delirium and multiorgan failure.Persistent hypoxia and on high flow O2, minimally responsive--Labs getting worse Physical Exam Vital Signs: Vital Signs: Last Vital Signs Temp 98.6 F 10/02/20 08:00 Pulse 126 H 10/02/20 08:00 Resp 26 H 10/02/20 11:13 BP 192/84 H 10/02/20 08:00 Pulse Ox 93 10/02/20 08:00 Body Mass Index 29.1 Const: Other: General: unresponsive Resp: mild to mod respiratory efor CVS: regular on monit GI: +BS, no tenderness, no distention Skin: No rash Neuro: moves freely General: cooperative and ill appearing Objective Data Current Medications Generic Name Dose Route Start Last Admin Trade Name Freq PRN Reason Stop Dose Admin Acetaminophen 650 mg 09/22/20 08:25 09/23/20 02:19 Acetaminophen 325 Mg Tablet PO 650 mg Q6H PRN Administration Pain, Mild (Pain Scale 1-3) Aspirin 81 mg 09/22/20 09:00 10/02/20 07:20 Aspirin Enteric Coated 81 Mg Tablet.Dr PO Not Given DAILY [facility] Atorvastatin Calcium 20 mg 09/22/20 09:00 10/02/20 07:21 Atorvastatin Calcium 20 Mg Tablet PO Not Given DAILY [facility] Dexamethasone Sodium Phosphate 6 mg 09/22/20 09:00 10/02/20 07:28 Dexamethasone Sod Phosphate 4 Mg/Ml Vial IVPUSH 6 mg DAILY [facility] Administration Diltiazem HCl 180 mg 09/23/20 09:00 10/02/20 07:21 Diltiazem Hcl Cd 180 Mg Cap.Er.24h PO Not Given DAILY [facility] Protocol Docusate Sodium 100 mg 09/22/20 08:25 09/22/20 08:55 Docusate Sodium 100 Mg Capsule PO 100 mg DAILY PRN Administration Constipation Enoxaparin Sodium 85 mg 09/22/20 08:25 10/02/20 07:28 Enoxaparin Sodium 100 Mg/Ml Syringe 1 mg/kg (85 mg) 85 mg SUBCUT Administration Q12H [facility] Sodium Chloride 1,000 mls @ 150 mls/hr 10/01/20 22:00 10/02/20 04:10 IVCONT Infused .Q6H40M [facility] Infusion Insulin Glargine 20 unit 09/26/20 09:00 10/02/20 07:51 Insulin Glargine,Hum.Rec.Anlog 100 Unit/Ml 10 Ml Vial SUBCUT Not Given DAILY [facility] Insulin Human Lispro 0 unit 09/22/20 08:25 10/02/20 07:51 Insulin Lispro 100 Unit/Ml 3 Ml Vial SUBCUT Not Given QIDACHS [facility] Protocol Lorazepam 0.5 mg 09/29/20 10:01 10/02/20 09:53 Lorazepam 2 Mg/Ml Vial IVPUSH 0.5 mg Q4H PRN Administration Anxiety Morphine Sulfate 2 mg 10/02/20 10:55 10/02/20 11:03 Morphine Sulfate 2 Mg/Ml Cartridge IVPUSH 2 mg Q4H PRN Administration Pain, Severe (Pain Scale 7-10) Ondansetron HCl 4 mg 09/22/20 08:25 09/23/20 18:35 Ondansetron Hcl 4 Mg/2 Ml Vial IVPUSH 4 mg Q8H PRN Administration Nausea and Vomiting Pharmacy Consult 1 each 09/21/20 23:24 Consult Rx Perform Med Rec MISCELLANE ONCE PRN Consult order Polyethylene Glycol 17 gm 09/22/20 20:10 10/02/20 07:21 Polyethylene Glycol 3350 17 Gm Powd.Pack PO Not Given DAILY [facility] Polyethylene Glycol 17 gm 09/23/20 14:30 Polyethylene Glycol 3350 17 Gm Powd.Pack PO DAILY PRN constipation Sodium Chloride 3 ml 09/22/20 08:25 10/02/20 07:28 0.9 % Sodium Chloride Flush 3 Ml Syringe IVFLUSH 3 ml QSHIFT [facility] Administration Labs CBC & Chem 7: 10/02/20 05:50 10/02/20 05:50 Microbiology Microbiology Results: Microbiology 09/21/20 22:00 Blood - Venous Blood Culture - Final No growth after 5 days. 09/21/20 21:49 Blood - Venous Blood Culture - Final No growth after 5 days. Assessment and Plan (1) Hypoxia: Status: Deleted (2) Pneumonia due to COVID-19 virus: Status: Acute (3) Upper respiratory infection: Status: Deleted (4) Atrial fibrillation with RVR: Status: Acute (5) Acute respiratory failure with hypoxia: Status: Acute (6) CKD (chronic kidney disease), stage III: Status: Acute (7) Diabetes: Status: Acute (8) Hypertension: Status: Acute Assessment and Plan: 84-year-old male presented to the hospital with sob, afib rvr, abd distension sepsis poa due to viral sepsis from covid pneumonia complicated by acute hypoxic respiratory failure and afib with rvr continue decadron Unable to wean off O2 at this point AFIB in sinus now -contineu anticoagulation with Lovenox, changed to eliquis when able -cardizem to control heart rate ileus resolved diabetes insulin CKD III stable HyerNatremia--IV water hyperlipidemia statin Anemia--unclear etology, check Occult blood HyperkAlemia--d/t CKD--might need Kayexlate via NGT delirium--Ativan to control behavior and anxiety overall poor prognosis and will discuss with family. I continue to talk to Laurel health care proxy and want continue with full code Will get nutrition input to for options to feed. Prognosis is poor
[2020-10-02 11:53] LABS: Glucose, Whole Blood 145 mg/dL (60-115)
--- NOTE | 2020-10-02 12:09 | MHC.CLN ---
RE: CONSULT NUTRITION OPTIONS: RECOMMEND PPN D10 AA4.25 DAY 1 START AT 40CC/HR TO PROVIDE 551KCALS, 46G PROTEIN DAY 2 INCREASE TO 65CC/HR TO PROVIDE 796KCALS, 66G PROTEIN CHECK TRIGS DAY 3 INCREASE FORMULA TO GOAL 85CC/HR AND ADD 11ML OF 20% LIPIDS TO PROVIDE 1568 TOTAL KCALS (23KCALS/KG), 87G PROTEIN (1.3G/KG) REPLETE LYTES AND DISCUSS WITH PHARMACY CONSULT RD IF NEEDED-AVAILABLE VIA TIGER TEXT FOLLOWING
[2020-10-02] MEDS: LORazepam 2 MG/ML VIAL 1 MG IVPUSH (12:56)
[2020-10-02] MEDS: Sodium Chloride 0.45 % 1,000 ML 150 ML IVCONT (13:13)
--- NOTE | 2020-10-02 14:17 | MHC.CM.PN ---
Male 84 remains a full code. DP will be developed when oxygen requirement and MS improve. CM will follow.
--- NOTE | 2020-10-02 14:53 | W.MHC.ACPN ---
Advanced Care Planning Note Advanced Care Planning Note Time spent (in minutes): 20 Narrative: I have had yet another conversation with patient's health care Proxy Laurel with patient's nurse Karolina and we discussed the patient's deteliorating condition with worsening hypoxia and max on all oxygen no tachycardia, anemia, renal failure, hypernatremia and options been limitted at this time. Health care proxy is agreable to comfort care only with no escalation of care. Morphine and Ativan will be given for comfort. Patient's signficant other will be allow to come in on compassion basis--explain that she will be in covid unit and understands and take risks. She will be provided with apropriate PPE. This is one of many conversations I have had with Laurel Barragan, HCP [phone] Problems Discussed (1) Hypoxia: (2) Pneumonia due to COVID-19 virus: (3) Upper respiratory infection: (4) Atrial fibrillation with RVR: (5) Acute respiratory failure with hypoxia: (6) CKD (chronic kidney disease), stage III: (7) Diabetes: (8) Hypertension:
--- NOTE | 2020-10-02 16:05 | MHC.CM.PN ---
Special permission granted to the Patients S.O., Tonie Perez to come into the Hospital to see Troy. His Step Dtr Laurel escorted her mother to [facility]. Ms Perez was provided scrubs and PPE equipment necessary to enter a COVID+ room. She was assisted by Laurel and this ghost writer. After her time with Troy, she was assisted by this ghost writer, removing all PPE except for her N-95 mask. Emotional support and encouragement provided to the family. They were very grateful to the Hospital for allowing this last visit. They have now agreed to ELECTRICAL ENGINEERING TEACHER
--- NOTE | 2020-10-02 16:58 | PC.NURSE ---
Noon shift assessment, patient is abdominal breathing, maxed out on high flow and NRB, very restless and nonverbal. Pupils assessed, fixed and non reactive to light, MD made aware at time. Three way call placed with this RN, MD and proxy to discuss turn of events and ESTIMATOR JEWELRY. Proxy verbally stated she agrees with the need for ESTIMATOR JEWELRY and asked for her mother to be the one who can come to the hospital for end of life visit. Family member dressed in PPE and allowed visitation. ESTIMATOR JEWELRY order active and oxygen is being weaned down, Fluids stopped and tele pack removed.
--- NOTE | 2020-10-02 20:35 | PM.DDS ---
Discharge Sum: Prov Provider Primary care physician: Unknown Physician Consults: 09/22/20 08:25 Consult to Cardiology Routine Consulting Provider: Fransico Vincent Reason for consultation: Afib Has provider been notified: No 09/23/20 04:08 Consult to General Surgery Routine Consulting Provider: Lori Epps Reason for consultation: ileus Has provider been notified: No Discharge Sum: Diag Contributing Factors (1) Hypoxia: (2) Pneumonia due to COVID-19 virus: (3) Upper respiratory infection: (4) Atrial fibrillation with RVR: (5) Acute respiratory failure with hypoxia: (6) CKD (chronic kidney disease), stage III: (7) Diabetes: (8) Hypertension: Discharge Sum: Summary Date and Time Date of admission: 09/22/20 00:10 Date of : 10/02/20 Time of : 20:34 Summary Details: this an 84-year-old male with past medical history diabetes who presents to the hospital with complaints of cough. patient is Citizen [place]-speaking only and history is obtained with the help of an rag willow operator. 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 He reports that he has been having cough for the past 1 week. According to the ED record patient presented to the hospital on stating that multiple members of his family had tested positive for COVID-19 after Thanksgiving. His family were concerned that he may also be suffering from that as he had cough and was not feeling generally well. He returns today stating that his cough has worsened, he has no shortness of breath, nonproductive cough. He has low appetite with very minimal oral intake. No diarrhea or constipation. No lower extremity edema. No orthopnea PND. No headache change in vision. On arrival to the ED patient found to have an O2 saturation of 89% on room air. He was also found to have a heart rate of 175, and in AFib. patient currently on 3 L of oxygen satting between 90-92%. Labs are significant for WBC count of 4.4, sodium of 134, BUN of 36, creatinine of 1.82 (baseline). COVID-19 positive. Chest x-ray showing bilateral infiltrate. Hospital course: Patient was admitted due to acute respiratory failure due to covid 19 associated with severe hypoxia and viral sepsis. Hospital course further complicated by AFIB, renal failure, hypernatremia, ileus and delirium. Family made him FLOOR HELPER and he on 10/02/20 at 8.34 pm and was pronounced by Dr. Borrero Additional Data Attending physician: Caio Hylton MD
--- NOTE | 2020-10-02 21:21 | PM.EVENT ---
Event Note Date of Service: 10/02/20 Event Note: Notified by the RN patient is found to be on asystole. Patient was seen and evaluated at the bedside, No vitals signs are able to be obtained. No breath sounds are evident or any pulse. EKG showing asystole at 8:34 pm. Time of 8:34 pm. Family made aware [phone] Uzma Montesinos.
--- NOTE | 2020-10-03 00:29 | PC.NURSE ---
on nursing rounds at 1900 approx. pt restless, medicated with morphine 2mg iv to rac #20 site wnl with decreased restless effect. 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 family member wily in for visit. roberto carlos updated via phone regarding pt's poor status cleaned & repositioned pt & moth care given. 2033 pt asystole on monitor with no palpable pulse (radial or with auscultation - no heart sounds. Dr. Payton notified & up to see pt for pronouncement. family updated by Dr. Farfan. [facility] notified within 1hr of asystole, and referral # [id number] obtained from [facility]- declined pt for Covid+ reasons. #20 rac d/c'd & postmortem care given to pt. Nsg supv aware of pt's readiness for morgue transfer with personal belongings
--- NOTE | 2020-10-03 01:22 | PC.NURSE ---
0100 pt to [facility] with personal belongings with nsg supv Sonido & Lexi Her RN via patrice with personal belongings
== END 2020-10-02 01:00 | disposition expired | DRG 871 ==
LOC: HO.ED 23:39 → HO.ICU 09-22 07:24 → HO.IMC 09-22 12:31
PROVIDERS: Internal Medicine; Admitting Provider Internal Medicine; Emergency Provider Emergency Medicine; Visit Provider Internal Medicine
DX: A41.89 Other specified sepsis (principal); U07.1 COVID-19; J12.89 Other viral pneumonia; J96.01 Acute respiratory failure with hypoxia; K56.7 Ileus, unspecified; F05 Delirium due to known physiological condition; I12.9 Hypertensive chronic kidney disease with stage 1 through stage 4 chronic kidney disease, or unspecified chronic kidney disease; E11.22 Type 2 diabetes mellitus with diabetic chronic kidney disease; N18.30 Chronic kidney disease, stage 3 unspecified; I48.91 Unspecified atrial fibrillation; E78.5 Hyperlipidemia, unspecified; Z79.4 Long term (current) use of insulin; Z79.82 Long term (current) use of aspirin; Z79.899 Other long term (current) drug therapy
CPT/HCPCS: 11104; 36415; 36600; 71045; 74018; 80048; 80051; 81001; 81003; 82803; 82947; 83605; 83615; 84484; 85025; 85027; 85060; 85379; 85610; 85730; 86140; 87040; 87635; 93005; 96361; 96374; 96375; 99285; 99291; J1100; J1650; J2060; J2270; J2405; J8540